=== PATIENT | female | born 1975 | race Caucasian/White ===

== ENCOUNTER 2019-02-21 21:25 | Observation (INO) ==
[2019-02-22] MEDS ORDERED: Ondansetron ODT 4 MG TAB.RAPDIS SL PRN (00:10)
[2019-02-22] MEDS ORDERED: Naloxone 0.4 MG/ML INJ IVP PRN (00:10)
--- NOTE | 2019-02-22 00:25 | Internal Med History&Physical ---
<Krissy Burleson - Last Filed: 02/22/19 04:15> Date of Encounter: 02/22/19 Time of Encounter: 11:45 Internal Medicine - H&P: HPI Chief complaint: headache History of present illness: Ms. Cochran is a 43 year old female past medical history of diabetes mellitus on insulin, migraine, asthma who presented to [facility] complaining of headache ongoing for the past 2 days. He reports this morning she woke up and had a tingling sensation around her face and upon getting up she felt dizzy and fell. She reports her was able to wake her up and she was alert and oriented upon waking up. She denies any nausea or emesis. She does report for the past 4 months she has not been taking her insulin because she stopped going to her PCP appointments. She has also not been on issue her glucose at home nor watching her diet. Additionally, she complains of burning sensation in her feet will which likely is secondary to peripheral neuropathy due to poorly controlled glucose. When asked about any drug use she denied it but when directly asked about her amphetamine use she reports taking it orally once. He denied any fever, chills, nausea, shortness of breath or chest pain or any recent illnesses. And [facility] she was noted to have urine toxicology positive for amphetamine. Her glucose was noted to be 708 elevated serum osmolality of 306. She received total of 20 units of Humulin. She had no anion gap. At presentation her potassium was noted to be 3.8. Repeat glucose was 345 and her repeat potassium is 3.0, she subsequently received 20 mEq of IV potassium at outside facility. Her CT of the head showed no acute modalities. Her chest x- ray showed clear lungs with no acute bony abnormalities. At presentation to [facility] point of care glucose was 197 her potassium was noted to be 3.2. Past Med Surg Social Fam HX - Past Medical History Medical history: asthma, diabetes, migraine Additional medical history: smoker Psychiatric history: no psych history - Past Surgical History Surgical History: cholecystectomy, hysterectomy Additional surgical history: abscess drained - Social History Smoking Status: Current every day smoker Smokeless Tobacco Status: No Alcohol use: none Drug use: none - Family History Mother Hx Family Cardiac Disorders: Yes (Heart Arrythmia) Internal Medicine - H&P: Meds Allergy/AdvReac Type Severity Reaction Status Date / Time [place] Allergy Anaphylaxis Verified 05/02/17 16:43 sumatriptan [From Imitrex] AdvReac Chest Pain Verified 05/02/17 18:30 All Systems PM: A 10-system review of systems was performed and is negative for pertinent findin gs except as documented above in the HPI. - Constitutional Constitutional: other (facial tingling), no chills, no fever(s), no weakness - EENT Eyes: no blurry vision, no change in vision, no pain Nose, mouth and throat: no dysphagia, no nasal congestion, no sinus pain - Cardiovascular Cardiovascular ROS IM: no chest pain, no dyspnea, no dyspnea on exertion - Respiratory Respiratory: no cough, no dyspnea, no dyspnea on exertion, no chest congestion - Gastrointestinal Gastrointestinal: no abdominal pain, no constipation, no diarrhea, no nausea, no vomiting - Genitourinary Genitourinary: no dysuria, no urinary frequency, no urinary incontinence - Musculoskeletal Musculoskeletal ROS IM: tingling (Bilateral feet and face), no arthralgias, no neck pain, no numbness - Integumentary Integumentary IM: no erythema, no pruritus, no rash - Neurological Neurological ROS: headache(s), no focal weakness, no vertigo, no weakness - Endocrine Endocrine IM: no fatigue, no flushing, no polyphagia - Constitutional Vitals: Temp Pulse Resp BP Pulse Ox 97.9 F 87 16 159/85 97 02/21/19 23:23 02/21/19 23:23 02/21/19 23:23 02/21/19 23:23 02/21/19 23:23 Exam: Gen: Vitals noted. No acute distress. Appears comfortable. Eyes: anicteric sclerae, moist conjunctivae; no lid-lag HENT: Atraumatic; oropharynx clear with moist mucous membranes and no mucosal ulcerations; normal hard and soft palate, no dentures Neck: Trachea midline; supple, no thyromegaly or lymphadenopathy Cardiac: tachycardic, no murmur, +S1/S2. No JVD noted. Pulmonary: CTA bilaterally, no wheezes, rales or rhonchi, equal chest expansion Abdomen: soft, nontender, no guarding. No masses or hepatosplenomegaly MSK: ROM intact, no joint swelling noted Extremities: no edema, nontender calf Skin: Normal temperature, turgor; no rash, ulcers or subcutaneous nodules Neuro: moves all extremities, no focal deficits, cranial nerves II through XII intact Psych: Appropriate mood and behavior. A&Ox3 Internal Med - H&P Results - Labs CBC & Chem 7: 02/22/19 00:44 - Assessment and Plan (1) Type 2 diabetes mellitus with hyperosmolarity without nonketotic hyperglycemic-hyperosmolar coma ([facility]) Current Visit: Yes Status: Acute Assessment and plan: History of diabetes and supposed to be on short-acting insulin Reports she is not been taking her insulin for the past 4 month. She is unsure if she has type 1 or type 2 diabetes At presentation to outside facility glucose was noted to be 708 without anion gap. Most recent A1c on file is from 2016 was 14 He received 20 units of short-acting insulin outside facility At presentation her glucose was 197 Would benefit from long acting upon discharge Repeat BMP pending Hemoglobin A1c pending Sliding-scale insulin ordered Diabetic diet scaffold worker consulted (2) Amphetamine abuse Current Visit: No Status: Acute Assessment and plan: Presented to outside ED complaining of tingling and pain in her head. She was tachycardic at outside facility and urine toxicology showed amphetamine. Socia (3) Facial tingling Current Visit: Yes Status: Acute Assessment and plan: Likely secondary to hyperglycemia and/or hypokalemia Head CT was negative for any acute abnormalities Continue to replete electrolytes (4) Hypokalemia Current Visit: Yes Status: Acute Assessment and plan: Potassium outside facility was 3.0 she received 20 mg of IV potassium Presentation to [facility] her potassium was 3.2 Currently receiving 40 oral and 40 IV Repeat labs pending Magnesium and phosphorus pending (5) Migraine Current Visit: No Status: Chronic Assessment and plan: History of chronic migraines reported worsening headache for the past 2 days at outside facility. Worsening migraine likely secondary to uncontrolled diabetes. Had CT of the head which did not show any acute abnormalities Acetaminophen when necessary Qualifiers: Migraine type: unspecified Status migrainosus presence: without status migrainosus Intractability: not intractable Qualified Code(s): G43.909 - Migraine, unspecified, not intractable, without status migrainosus (6) Asthma Current Visit: No Status: Chronic Assessment and plan: History of asthma. Outside facility complained of shortness of breath. Does currently smoke Continue albuterol when necessary Also added spirometry Qualifiers: Asthma severity: unspecified severity Asthma persistence: unspecified Asthma complication type: unspecified Qualified Code(s): J45.909 - Unspecified asthma, uncomplicated (7) DVT prophylaxis Current Visit: No Status: Acute Assessment and plan: Subcutaneous heparin - Time Spent With Patient Total time spent is greater than 50% in coordination of care (as documented) at patient's floor/unit and/or counseling patient: <Garfield Angel - Last Filed: 02/22/19 07:42> Date of Encounter: 02/22/19 Internal Medicine - H&P: HPI History of present illness: Ms. Cochran is a 43 year old female All Systems PM: A 10-system review of systems was performed and is negative for pertinent find ings except as documented above in the HPI. - Constitutional Vitals: Temp Pulse Resp BP Pulse Ox 97.6 F 93 16 160/113 98 02/22/19 05:35 02/22/19 07:31 02/22/19 07:31 02/22/19 07:31 02/22/19 07:31 Internal Med - H&P Results - Labs CBC & Chem 7: 02/22/19 00:44 Labs: BMP 02/22/19 00:44 Sodium 139 Potassium 3.3 L Chloride 108 H Carbon Dioxide 25 BUN 16 Creatinine 0.72 Glucose 260 H Calcium 8.0 L - Time Spent With Patient Total time spent is greater than 50% in coordination of care (as documented) at patient's floor/unit and/or counseling patient: - Attending Attestation I saw and evaluated the patient. I reviewed the residents note, performed my own physical examination and agree with findings and plan as documented in the residents note. Patient seen and examined on 02/22/19. Patient admitted with concerns for HHS, now improved. Patient states that she just did not pick up operator her medication, no specific reason why. Agree with social work consult to identify barriers. Patient also has history of meth use. Blood pressure elevated this morning, IV hydralazine given, repeat blood pressures to ensure it is improving.
[2019-02-22] MEDS ORDERED: D5% in Water 1,000 ML IVC PRN (00:41)
[2019-02-22] MEDS ORDERED: *HR* Dextrose 50 % in Water (Syg) 50 ML SYRINGE IVP PRN (00:41)
[2019-02-22] MEDS ORDERED: Dextrose Gel 15 GM/37.5 ML TUBE PO PRN ×2 (00:41)
[2019-02-22 01:16] LABS: BUN/Creatinine Ratio 22 (6-26); Blood Urea Nitrogen 16 mg/dL (6-20); Carbon Dioxide 25 mEq/L (23-29); Chloride 108 mEq/L (98-107); Glucose 260 mg/dL (70-105); Osmolality,Calculated 298 (280-300); Potassium 3.3 mEq/L (3.5-5.1); Sodium 139 mEq/L (136-145); eGFR For Non-African Americans > 60 (> 60)
[2019-02-22] MEDS: Acetaminophen 325 MG TABLET PO PRN ×4 (01:21→17:27)
[2019-02-22] MEDS: Insulin LISPRO 300 UNITS/3 ML VIAL SQ SCH ×4 (01:21→17:30)
[2019-02-22] MEDS ORDERED: Potassium Chloride 40 MEQ, Lidocaine 1% 2 ML in D5% in Water 500 ML IVPB ONE (03:00)
[2019-02-22] MEDS ORDERED: Insulin LISPRO 300 UNITS/3 ML VIAL SQ SCH ×2 (06:00)
[2019-02-22] MEDS: *HR* Heparin 5,000 UNIT/ML VIAL SQ SCH ×2 (06:04→17:29)
[2019-02-22] MEDS ORDERED: hydrALAZINE 10 MG TABLET PO PRN (06:42)
[2019-02-22 07:33] VITALS: BP 160/113
[2019-02-22 07:44] LABS: Basophils # 0.1 K/mcL (0.0-0.2); Basophils % 0.5 %; Eosinophils # 0.2 K/mcL (0.0-0.6); Eosinophils % 1.7 %; Hematocrit 39.7 % (35.3-44.9); Hemoglobin 13.4 g/dL (11.5-15.4); Immature Granulocytes % 0.2 % (0-4); Lymphocytes # 4.4 K/mcL (0.6-4.6); Lymphocytes % 47.7 %; Mean Corpuscular HGB Conc 33.8 g/dL (31.6-35.5); Mean Corpuscular Hemoglobin 28.9 pg (28.0-33.3); Mean Corpuscular Volume 85.6 fL (83.0-100.0); Mean Platelet Volume 11.2 fL (9.4-12.4); Monocytes # 0.5 K/mcL (0.0-1.3); Monocytes % 5.4 %; Neutrophils # 4.1 K/mcL (1.6-8.9); Platelet Count 314 K/mcL (140-400); Red Blood Count 4.64 M/mcL (3.82-4.97); Red Cell Distribution Width 12.6 % (11.5-14.5); Segmented Neutrophils % 44.5 %
[2019-02-22] MEDS ORDERED: amLODIPine 5 MG TABLET PO SCH (09:00)
[2019-02-22 09:57] LABS: BUN/Creatinine Ratio 27 (6-26); Blood Urea Nitrogen 17 mg/dL (6-20); Calcium 8.1 mg/dL (8.6-10.3); Carbon Dioxide 22 mEq/L (23-29); Chloride 106 mEq/L (98-107); Glucose 312 mg/dL (70-105); Magnesium 1.6 mg/dL (1.6-2.6); Osmolality,Calculated 293 (280-300); Phosphorous 3.2 mg/dL (2.7-4.5); Sodium 135 mEq/L (136-145); eGFR For Non-African Americans > 60 (> 60)
[2019-02-22 10:48] LABS: Estimated Average Glucose 375 mg/dl; Hemoglobin A1C 14.7 %
--- NOTE | 2019-02-22 13:35 | Discharge Summary ---
- NOTES TO OUTPATIENT PROVIDER Notes to Outpatient Provider: Hyperglycemia 2/2 insulin noncompliance Date of Encounter: 02/22/19 Time of Encounter: 13:32 Hospital course: Dear Doctors, I recently had the opportunity to care for this patient during their recent hospital stay at [facility]. Yany Cochran is a 43 F w hx DM2 on insulin, migraines, asthma, who presented at time of admission with headache x2 days, facial tingling, and dizziness. She also reports not taking her insulin for several months and not following up PCP, no idea of her blood sugar. In the ED, glucose was 708 w osmolality 306, no AG. She received total of 20 units of Humulin. Repeat glucose was 345 and her repeat potassium was down to 3, and she subsequently received 20 mEq of IV potassium and transferred to this hospital. Head CT and CXR unremarkable. UA concerning for infection. In the hospital, pt's sugar in the 200s but otherwise labs unremarkable. Symptoms which brought patient to hospital abated with improved glycemic control. Pt rehydrated w IV fluids. Discharged to follow up with PCP. Dx: Severe hyperglycemia, UTI, hypokalemia Pertinent tests/consults: none Follow up: PCP within 1 week Tests pending: none Med changes: - new Keflex 500 bid x5 days - also pt instructed to resume home Lantus 20 qhs and Humalog achs prn sliding scale Mental status: awake, fully oriented Code status: Full Admit and discharge on same day, >8h apart, different providers. It has been my pleasure participating in this patient's care. Please contact me with any questions or concerns regarding their hospital stay. Sincerely, Layo Barboza MD - Time Spent with Patient Time spent: D/C greater than 8 hours after Admission - Discharge Medications Prescriptions: New cephALEXin [Keflex] 500 mg PO BID #10 capsule Continued Amitriptyline HCl 100 mg PO HS PRN PRN Reason: Sleep Insulin LISPRO [HumaLOG] 0 unit SQ TIDWM PRN PRN Reason: elevated blood sugar Insulin Glargine,Hum.rec.anlog [Basaglar Kwikpen U-100] 20 unit SQ HS Fluticasone/Vilanterol [Breo Ellipta 100-25 Mcg INH] 1 each IH DAILY Albuterol Sulfate [Ventolin Hfa] 2 puff IH Q4H PRN PRN Reason: Shortness Of Breath hydrOXYzine HCl [Hydroxyzine HCl] 25 mg PO BID PRN PRN Reason: Anxiety Propranolol LA (24 HR) [Inderal LA] 60 mg PO DAILY Home Medications: Albuterol Sulfate [Ventolin Hfa] 2 puff IH Q4H PRN 02/22/19 [History] Amitriptyline HCl 100 mg PO HS PRN 02/22/19 [History] Fluticasone/Vilanterol [Breo Ellipta 100-25 Mcg INH] 1 each IH DAILY 02/22/19 [History] Insulin Glargine,Hum.rec.anlog [Basaglar Kwikpen U-100] 20 unit SQ HS 02/22/19 [History] Insulin LISPRO [HumaLOG] 0 unit SQ TIDWM PRN 02/22/19 [History] Propranolol LA (24 HR) [Inderal LA] 60 mg PO DAILY 02/22/19 [History] cephALEXin [Keflex] 500 mg PO BID #10 capsule 02/22/19 [Rx] hydrOXYzine HCl [Hydroxyzine HCl] 25 mg PO BID PRN 02/22/19 [History] Allergies/Adverse Reactions: Allergy/AdvReac Type Severity Reaction Status Date / Time [place] Allergy Anaphylaxis Verified 05/02/17 16:43 sumatriptan [From Imitrex] AdvReac Chest Pain Verified 05/02/17 18:30 Date of admission: 02/21/19 23:18 Primary care physician: Tiesha Bender Consults: 02/22/19 00:11 Consult to Drug Abuse Resistance Education Officer [CONS] Routine Reason for SW Consult: Has not been taking her medications - Constitutional Vitals: Temp Pulse Resp BP Pulse Ox 97.6 F 93 16 160/113 98 02/22/19 05:35 02/22/19 07:31 02/22/19 07:31 02/22/19 07:31 02/22/19 07:31 Exam: General: NAD, good eye contact, chronically ill appearing Thoracic: Normal breath sounds b/l, no wheezing or crackles Cardio: Normal S1 and S2, regular rate and rhythm Abdomen: Soft, nontender, nondistended. Extremities: Warm, well perfused. DP pulses 2+ b/l. No edema. Neuro: Awake, fully oriented. Speech fluent - Patient Status Disposition: Home, Self-Care Condition: Fair Functional capacity at discharge: independent ambulation Overall status at discharge: patient is progressing back to baseline - Discharge Instructions Follow Up With: Tiesha Bender CNP [Primary Care Provider] - (1 week) - Diet and Activity Activity: resume usual activities as tolerated Diet: diabetic diet
== END 2019-02-22 18:22 | disposition home or self-care (01) ==
LOC: 2NNU → 2NENU 02-22 01:58
PROVIDERS: ADMIT Pediatrics; ATTEND Pediatrics

== ENCOUNTER 2020-01-11 01:43 | Inpatient (IN) ==
[2020-01-11] MEDS ORDERED: 0.9 % Sodium Chloride 1,000 ML IVC ONE (02:04)
[2020-01-11 02:23] LABS: Basophils # 0.1 K/mcL (0.0-0.2); Basophils % 0.5 %; Eosinophils % 0.1 %; Hemoglobin 16.7 g/dL (11.5-15.4); Immature Granulocytes % 1.6 % (0-4); Lymphocytes # 1.7 K/mcL (0.6-4.6); Mean Corpuscular HGB Conc 32.7 g/dL (31.6-35.5); Mean Corpuscular Volume 88.5 fL (83.0-100.0); Mean Platelet Volume 13.7 fL (9.4-12.4); Monocytes # 1.1 K/mcL (0.0-1.3); Monocytes % 3.8 %; Nucleated Red Blood Cells 0.1 /100 WBC (0); Platelet Count 353 K/mcL (140-400); Red Blood Count 5.76 M/mcL (3.82-4.97); Red Cell Distribution Width 13.2 % (11.5-14.5); White Blood Count 28.4 K/mcL (4.3-11.1)
[2020-01-11 02:26] LABS: Bilirubin,Urine Negative (Negative); Blood,Urine Small (Negative); Clarity,Urine Cloudy (Clear); Color,Urine Yellow (Yellow); Glucose,Urine (UA) >=1000 mg/dL (Normal); Ketones,Urine 15 mg/dL (Negative); Leukocyte Esterase,Urine Negative (Negative); Nitrite,Urine Negative (Negative); Protein,Urine 30 mg/dL (Neg-Trace); Specific Gravity,Urine > 1.030 (1.010-1.025); Urobilinogen,Urine Normal (Normal)
[2020-01-11 02:28] LABS: Bacteria,Urine Many per hpf (None-Few); Hyaline Casts,Urine None Seen per lpf (None-Few); RBC,Urine 0-3 per hpf (0-3); Squamous Epithelial Cell,Urine Moderate per lpf (None-Few); WBC,Urine 30-50 per hpf (0-3)
[2020-01-11 02:49] LABS: ABG Base Excess -4 mEq/L (-2 to 3); ABG HCO3 22 mEq/L (21-27); ABG Oxygen Saturation 89 % (95-98); ABG PCO2 42 mmHg (35-45); ABG PH 7.33 pH Units (7.32-7.45); ABG PO2 60 mmHg (85-104); ABG TCO2 23 mEq/L (20-26)
[2020-01-11 03:05] LABS: Albumin 3.7 g/dL (3.5-5.7); Albumin/Globulin Ratio 0.8 (1.1-2.2); Bilirubin,Total 0.4 mg/dL (0.3-1.0); Calcium 10.2 mg/dL (8.6-10.3); Globulin 4.7 g/dL (2.4-3.5); Potassium 4.5 mEq/L (3.5-5.1); Total Protein 8.4 g/dL (6.4-8.9); Troponin I 0.04 ng/mL (< 0.04)
[2020-01-11] MEDS ORDERED: Insulin Human Regular 10 UNIT in 0.9 % Sodium Chloride 10 ML IV ONE (03:26)
[2020-01-11] MEDS ORDERED: *HR* Dextrose 50 % in Water (Syg) 50 ML SYRINGE IVP PRN ×2 (03:27→05:56)
[2020-01-11] MEDS ORDERED: cefTRIAXone 1,000 MG in 0.9 % Sodium Chloride Mini Bag 100 ML IVPB ONE (03:28)
[2020-01-11] MEDS ORDERED: Insulin Human Regular 100 UNIT in 0.9 % Sodium Chloride 100 ML IVC SCH ×2 (03:30→06:15)
[2020-01-11] MEDS: 0.9 % Sodium Chloride 1,000 ML IVC SCH ×2 (03:32→04:53)
[2020-01-11] MEDS ORDERED: Ondansetron 4 MG/2 ML VIAL ONE (04:29)
[2020-01-11] MEDS ORDERED: Ondansetron 4 MG/2 ML VIAL IVP ONE (04:30)
[2020-01-11] MEDS ORDERED: Morphine Sulfate 2 MG/ML SYRINGE IVP ONE (04:31)
[2020-01-11] MEDS ORDERED: Ondansetron 4 MG/2 ML VIAL IVP PRN (04:33)
[2020-01-11] MEDS ORDERED: Naloxone 0.4 MG/ML INJ IVP PRN (04:33)
[2020-01-11] MEDS ORDERED: Ipratropium/Albuterol Neb 3 ML IH PRN (04:37)
[2020-01-11] MEDS ORDERED: *HR* HYDROmorphone (PF) 1 MG/ML SYRINGE IVP PRN (04:40)
[2020-01-11] MEDS ORDERED: 0.9 % Sodium Chloride 1,000 ML IVC SCH (04:45)
[2020-01-11 05:07] LABS: INR 1.1; Prothrombin Time 12.4 Seconds (9.4-12.1)
[2020-01-11 05:52] LABS: Albumin 3.6 g/dL (3.5-5.7); Albumin/Globulin Ratio 0.8 (1.1-2.2); Bilirubin,Total 0.3 mg/dL (0.3-1.0); Calcium 9.8 mg/dL (8.6-10.3); Globulin 4.4 g/dL (2.4-3.5); Magnesium 3.3 mg/dL (1.6-2.6); Phosphorous 2.4 mg/dL (2.7-4.5); Potassium 3.8 mEq/L (3.5-5.1)
[2020-01-11] MEDS ORDERED: 0.9 % Sodium Chloride w KCl 20 MEQ/1,000 ML MLS IVC SCH (06:00)
[2020-01-11] MEDS: *HR* Heparin 5,000 UNIT/ML VIAL SQ SCH ×3 (06:43→21:05)
[2020-01-11] MEDS: 0.45 % Sodium Chloride w/KCl 20 MEQ/1,000 ML MLS IVC SCH ×7 (08:18→23:45)
[2020-01-11 08:27] LABS: Calcium 9.6 mg/dL (8.6-10.3); Potassium 3.2 mEq/L (3.5-5.1)
[2020-01-11] MEDS ORDERED: cefTRIAXone 1,000 MG in Water for inj. (sterile) 10 ML IVP SCH (09:00)
[2020-01-11] MEDS ORDERED: cefTRIAXone 1,000 MG in 0.9 % Sodium Chloride Mini Bag 100 ML IVPB SCH (09:00)
[2020-01-11 10:11] LABS: VBG HCO3 26 mEq/L (21-27); VBG PCO2 41 mmHg (41-51); VBG PH 7.41 pH Units (7.32-7.42); VBG PO2 131 mmHg (25-50)
[2020-01-11 10:14] LABS: Hematocrit 47.1 % (35.3-44.9); Hemoglobin 15.7 g/dL (11.5-15.4); Mean Corpuscular HGB Conc 33.3 g/dL (31.6-35.5); Mean Corpuscular Hemoglobin 29.3 pg (28.0-33.3); Mean Platelet Volume 12.8 fL (9.4-12.4); Nucleated Red Blood Cells 0.1 /100 WBC (0); Platelet Count 320 K/mcL (140-400); Red Blood Count 5.35 M/mcL (3.82-4.97); Red Cell Distribution Width 13.2 % (11.5-14.5); White Blood Count 24.1 K/mcL (4.3-11.1)
[2020-01-11 10:39] LABS: Lymphocytes # 2.2 K/mcL (0.6-4.6); Monocytes # 0.2 K/mcL (0.0-1.3); Neutrophils # 21.7 K/mcL (1.6-8.9); Platelet Estimate Normal (Normal)
[2020-01-11 10:56] LABS: Amphetamine Screen,Urine Negative ng/mL (Cutoff=1000); Barbiturate Screen,Urine Negative ng/mL (Cutoff=200); Benzodiazepines Screen,Urine Negative ng/mL (Cutoff=200); Cannabinoid Screen,Urine Negative ng/mL (Cutoff = 50); Cocaine Screen,Urine Negative ng/mL (Cutoff= 300); Opiate Screen,Urine Positive ng/mL (Cutoff=300); Phencyclidine Screen,Urine Negative ng/mL (Cutoff=25)
[2020-01-11 10:59] LABS: Potassium 4.3 mEq/L (3.5-5.1)
[2020-01-11] MEDS ORDERED: Azithromycin 500 MG in 0.9 % Sodium Chloride 250 ML IVPB SCH (11:00)
[2020-01-11] MEDS: Ipratropium/Albuterol Neb 3 ML IH SCH ×3 (14:45→21:53)
[2020-01-11 14:55] LABS: BUN/Creatinine Ratio 36 (6-26); Blood Urea Nitrogen 41 mg/dL (6-20); Calcium 8.9 mg/dL (8.6-10.3); Carbon Dioxide 23 mEq/L (23-29); Chloride 123 mEq/L (98-107); Glucose 324 mg/dL (70-105); Osmolality,Calculated 337 (280-300); Potassium 5.1 mEq/L (3.5-5.1); Sodium 152 mEq/L (136-145); eGFR For African Americans > 60 (> 60); eGFR For Non-African Americans 51 (> 60)
[2020-01-11] MEDS: D5% in 0.45% NACL w KCl 20 MEQ/1,000 ML MLS IVC PRN ×2 (15:23→19:24)
[2020-01-11] MEDS: Insulin Human Regular 100 UNIT in 0.9 % Sodium Chloride 100 ML IVC SCH ×2 (16:08→19:25)
[2020-01-11] MEDS: Piperacillin/Tazobactam 3.375 GM in 0.9 % Sodium Chloride Mini Bag 100 ML IVPB SCH ×2 (16:08→23:47)
[2020-01-11 16:24] LABS: Amphetamine Screen,Urine Negative ng/mL (Cutoff=1000); Barbiturate Screen,Urine Negative ng/mL (Cutoff=200); Benzodiazepines Screen,Urine Negative ng/mL (Cutoff=200); Cannabinoid Screen,Urine Negative ng/mL (Cutoff = 50); Cocaine Screen,Urine Negative ng/mL (Cutoff= 300); Opiate Screen,Urine Positive ng/mL (Cutoff=300); Phencyclidine Screen,Urine Negative ng/mL (Cutoff=25)
[2020-01-11 19:49] LABS: BUN/Creatinine Ratio 33 (6-26); Blood Urea Nitrogen 33 mg/dL (6-20); Calcium 8.2 mg/dL (8.6-10.3); Carbon Dioxide 22 mEq/L (23-29); Chloride 122 mEq/L (98-107); Glucose 232 mg/dL (70-105); Osmolality,Calculated 329 (280-300); Sodium 152 mEq/L (136-145); eGFR For African Americans > 60 (> 60); eGFR For Non-African Americans > 60 (> 60)
[2020-01-11 19:53] LABS: Estimated Average Glucose 369 mg/dl
[2020-01-11] MEDS: Acetaminophen 325 MG TABLET PO PRN (21:05)
[2020-01-11 22:52] LABS: BUN/Creatinine Ratio 30 (6-26); Blood Urea Nitrogen 30 mg/dL (6-20); Carbon Dioxide 21 mEq/L (23-29); Chloride 125 mEq/L (98-107); Glucose 119 mg/dL (70-105); Osmolality,Calculated 317 (280-300); Potassium 4.7 mEq/L (3.5-5.1); Sodium 150 mEq/L (136-145); eGFR For African Americans > 60 (> 60); eGFR For Non-African Americans 59 (> 60)
[2020-01-12] MEDS: D5% in 0.45% NACL w KCl 20 MEQ/1,000 ML MLS IVC PRN (00:05)
[2020-01-12] MEDS ORDERED: Insulin DETEMIR 100 UNIT/ML X5UNITS SQ SCH (02:30)
[2020-01-12 03:04] LABS: Magnesium 2.3 mg/dL (1.6-2.6); Phosphorous 1.4 mg/dL (2.7-4.5)
[2020-01-12 03:25] LABS: BUN/Creatinine Ratio 26 (6-26); Blood Urea Nitrogen 28 mg/dL (6-20); Carbon Dioxide 16 mEq/L (23-29); Chloride 121 mEq/L (98-107); Glucose 131 mg/dL (70-105); Osmolality,Calculated 315 (280-300); Potassium 4.5 mEq/L (3.5-5.1); Sodium 149 mEq/L (136-145); eGFR For African Americans > 60 (> 60); eGFR For Non-African Americans 55 (> 60)
[2020-01-12] MEDS: Ipratropium/Albuterol Neb 3 ML IH SCH ×4 (03:26→20:34)
[2020-01-12 04:06] LABS: Basophils # 0.1 K/mcL (0.0-0.2); Basophils % 0.5 %; Eosinophils # 0.1 K/mcL (0.0-0.6); Eosinophils % 0.3 %; Hematocrit 46.3 % (35.3-44.9); Hemoglobin 14.6 g/dL (11.5-15.4); Immature Granulocytes % 1.8 % (0-4); Lymphocytes # 4.4 K/mcL (0.6-4.6); Lymphocytes % 15.8 %; Mean Corpuscular HGB Conc 31.5 g/dL (31.6-35.5); Mean Corpuscular Hemoglobin 29.1 pg (28.0-33.3); Mean Corpuscular Volume 92.2 fL (83.0-100.0); Mean Platelet Volume 12.5 fL (9.4-12.4); Monocytes # 2.3 K/mcL (0.0-1.3); Monocytes % 8.2 %; Neutrophils # 20.4 K/mcL (1.6-8.9); Nucleated Red Blood Cells 0.2 /100 WBC (0); Platelet Count 246 K/mcL (140-400); Red Blood Count 5.02 M/mcL (3.82-4.97); Segmented Neutrophils % 73.4 %; White Blood Count 27.8 K/mcL (4.3-11.1)
[2020-01-12] MEDS: *HR* Heparin 5,000 UNIT/ML VIAL SQ SCH ×3 (06:19→22:02)
[2020-01-12] MEDS ORDERED: Insulin LISPRO 300 UNITS/3 ML VIAL SQ SCH ×2 (07:30→21:00)
[2020-01-12] MEDS: Piperacillin/Tazobactam 3.375 GM in 0.9 % Sodium Chloride Mini Bag 100 ML IVPB SCH ×2 (08:06→16:01)
[2020-01-12] MEDS ORDERED: Potassium Phosphate 44 MEQ in 0.9 % Sodium Chloride 250 ML IVPB ONE (08:56)
[2020-01-12] MEDS ORDERED: Albuterol 2.5 MG/3 ML NEBULIZER IH PRN (09:22)
[2020-01-12] MEDS ORDERED: Ringers Solution, Lactated 1,000 ML IVC SCH (10:15)
[2020-01-12] MEDS: predniSONE 20 MG TABLET PO SCH (10:37)
[2020-01-12] MEDS: Insulin Human Regular 100 UNIT in 0.9 % Sodium Chloride 100 ML IVC SCH ×2 (10:41→23:28)
[2020-01-12] MEDS ORDERED: Furosemide 40 MG/4 ML VIAL IVP ONE (14:54)
[2020-01-12 15:11] LABS: BUN/Creatinine Ratio 21 (6-26); Blood Urea Nitrogen 19 mg/dL (6-20); Calcium 7.8 mg/dL (8.6-10.3); Carbon Dioxide 23 mEq/L (23-29); Chloride 114 mEq/L (98-107); Glucose 200 mg/dL (70-105); Osmolality,Calculated 302 (280-300); Potassium 3.7 mEq/L (3.5-5.1); Sodium 142 mEq/L (136-145); eGFR For African Americans > 60 (> 60); eGFR For Non-African Americans > 60 (> 60)
[2020-01-12] MEDS: Acetaminophen 325 MG TABLET PO PRN (22:42)
[2020-01-13] MEDS: Piperacillin/Tazobactam 3.375 GM in 0.9 % Sodium Chloride Mini Bag 100 ML IVPB SCH ×2 (00:03→09:02)
[2020-01-13] MEDS: Ipratropium/Albuterol Neb 3 ML IH SCH ×5 (00:14→22:13)
[2020-01-13 03:58] LABS: Basophils % 0.3 %; Eosinophils # 0.1 K/mcL (0.0-0.6); Eosinophils % 0.4 %; Hematocrit 40.1 % (35.3-44.9); Hemoglobin 13.2 g/dL (11.5-15.4); Immature Granulocytes % 1.3 % (0-4); Lymphocytes # 3.2 K/mcL (0.6-4.6); Lymphocytes % 20.1 %; Mean Corpuscular HGB Conc 32.9 g/dL (31.6-35.5); Mean Corpuscular Hemoglobin 29.7 pg (28.0-33.3); Mean Corpuscular Volume 90.1 fL (83.0-100.0); Mean Platelet Volume 12.7 fL (9.4-12.4); Monocytes # 0.5 K/mcL (0.0-1.3); Monocytes % 2.9 %; Neutrophils # 11.8 K/mcL (1.6-8.9); Nucleated Red Blood Cells 0.3 /100 WBC (0); Platelet Count 260 K/mcL (140-400); Red Blood Count 4.45 M/mcL (3.82-4.97); Red Cell Distribution Width 13.4 % (11.5-14.5); White Blood Count 15.8 K/mcL (4.3-11.1)
[2020-01-13 04:06] LABS: BUN/Creatinine Ratio 29 (6-26); Blood Urea Nitrogen 27 mg/dL (6-20); Calcium 8.1 mg/dL (8.6-10.3); Carbon Dioxide 24 mEq/L (23-29); Chloride 110 mEq/L (98-107); Glucose 93 mg/dL (70-105); Magnesium 1.8 mg/dL (1.6-2.6); Osmolality,Calculated 299 (280-300); Phosphorous 2.3 mg/dL (2.7-4.5); Potassium 3.3 mEq/L (3.5-5.1); Sodium 142 mEq/L (136-145); eGFR For African Americans > 60 (> 60); eGFR For Non-African Americans > 60 (> 60)
[2020-01-13] MEDS: Insulin Human Regular 100 UNIT in 0.9 % Sodium Chloride 100 ML IVC SCH (05:20)
[2020-01-13] MEDS: *HR* Heparin 5,000 UNIT/ML VIAL SQ SCH ×3 (05:25→21:41)
[2020-01-13] MEDS: Acetaminophen 325 MG TABLET PO PRN ×2 (07:01→16:50)
[2020-01-13] MEDS: predniSONE 20 MG TABLET PO SCH (09:01)
[2020-01-13] MEDS ORDERED: D5% in Water 1,000 ML IVC PRN (10:09)
[2020-01-13] MEDS ORDERED: Dextrose Gel 15 GM/37.5 ML TUBE PO PRN ×2 (10:09)
[2020-01-13] MEDS: Insulin DETEMIR 100 UNIT/ML X5UNITS SQ SCH ×2 (11:33→21:40)
[2020-01-13] MEDS: Insulin LISPRO 300 UNITS/3 ML VIAL SQ SCH ×2 (12:11→16:52)
[2020-01-13] MEDS ORDERED: Insulin LISPRO 300 UNITS/3 ML VIAL SQ ONE (18:09)
[2020-01-13] MEDS ORDERED: *HR* OxyCODONE/APAP 7.5/325 TABLET PO STA (19:37)
[2020-01-13] MEDS ORDERED: Insulin LISPRO 300 UNITS/3 ML VIAL SQ SCH (21:00)
[2020-01-14] MEDS ORDERED: Pantoprazole 40 MG VIAL IVP ONE (02:25)
[2020-01-14 02:36] LABS: Basophils % 0.2 %; Eosinophils % 0.2 %; Immature Granulocytes % 1.5 % (0-4); Lymphocytes # 2.8 K/mcL (0.6-4.6); Lymphocytes % 15.8 %; Mean Corpuscular HGB Conc 31.8 g/dL (31.6-35.5); Mean Corpuscular Hemoglobin 28.4 pg (28.0-33.3); Mean Corpuscular Volume 89.2 fL (83.0-100.0); Mean Platelet Volume 12.9 fL (9.4-12.4); Monocytes # 0.7 K/mcL (0.0-1.3); Monocytes % 3.8 %; Neutrophils # 13.9 K/mcL (1.6-8.9); Nucleated Red Blood Cells 0.3 /100 WBC (0); Platelet Count 354 K/mcL (140-400); Red Blood Count 4.93 M/mcL (3.82-4.97); Red Cell Distribution Width 13.5 % (11.5-14.5); Segmented Neutrophils % 78.5 %; White Blood Count 17.6 K/mcL (4.3-11.1)
[2020-01-14 02:54] LABS: BUN/Creatinine Ratio 34 (6-26); Blood Urea Nitrogen 29 mg/dL (6-20); Calcium 9.7 mg/dL (8.6-10.3); Carbon Dioxide 24 mEq/L (23-29); Chloride 105 mEq/L (98-107); Glucose 195 mg/dL (70-105); Osmolality,Calculated 299 (280-300); Phosphorous 2.2 mg/dL (2.7-4.5); Potassium 3.9 mEq/L (3.5-5.1); Sodium 139 mEq/L (136-145); eGFR For African Americans > 60 (> 60); eGFR For Non-African Americans > 60 (> 60)
[2020-01-14] MEDS: *HR* Heparin 5,000 UNIT/ML VIAL SQ SCH (03:27)
[2020-01-14] MEDS: Ipratropium/Albuterol Neb 3 ML IH SCH ×2 (04:18→10:33)
[2020-01-14] MEDS: Insulin LISPRO 300 UNITS/3 ML VIAL SQ SCH (07:44)
[2020-01-14] MEDS: Insulin DETEMIR 100 UNIT/ML X5UNITS SQ SCH (07:55)
[2020-01-14] MEDS: Acetaminophen 325 MG TABLET PO PRN (08:04)
[2020-01-14] MEDS ORDERED: predniSONE 20 MG TABLET PO SCH (09:00)
[2020-01-14 11:24] VITALS: BP 106/70
[2020-01-14] MEDS ORDERED: Aminoglycoside Consult 1 EACH MC ONE (12:49)
== END 2020-01-14 12:50 | disposition home or self-care (01) | DRG 720 ==
LOC: EMEROOARM 01:43 → 2NNU 01:43 → SUATTDRO 03:43 → 2NNU 04:16 → 2ANU 01-13 20:39
PROVIDERS: ADMIT Internal Medicine; ATTEND Student in an Organized Health Care Education/Training Program

== ENCOUNTER 2021-06-10 08:22 | Inpatient (IN) ==
[2021-06-10] MEDS ORDERED: *HR* Heparin 5,000 UNIT/ML VIAL IVP ONE (08:32)
[2021-06-10] MEDS ORDERED: 0.9 % Sodium Chloride 1,000 ML IVC ONE (08:34)
[2021-06-10] MEDS ORDERED: 0.9 % Sodium Chloride 1,000 ML ONE (08:35)
[2021-06-10] MEDS ORDERED: Aspirin 81 MG TAB.CHEW ONE (08:35)
[2021-06-10] MEDS ORDERED: *HR* Heparin 5,000 UNIT/ML VIAL ONE (08:35)
[2021-06-10] MEDS ORDERED: *HR* Midazolam HCl 2 MG/2 ML VIAL ONE (08:44)
[2021-06-10 08:45] LABS: Basophils # 0.1 K/mcL (0.0-0.2); Basophils % 0.4 %; Eosinophils # 0.2 K/mcL (0.0-0.6); Eosinophils % 1.9 %; Hematocrit 41.6 % (35.3-44.9); Hemoglobin 13.8 g/dL (11.5-15.4); Immature Granulocytes % 0.2 % (0-4); Lymphocytes % 41.4 %; Mean Corpuscular HGB Conc 33.2 g/dL (31.6-35.5); Mean Corpuscular Volume 84.4 fL (83.0-100.0); Mean Platelet Volume 11.7 fL (9.4-12.4); Monocytes # 0.8 K/mcL (0.0-1.3); Monocytes % 6.4 %; Neutrophils # 6.3 K/mcL (1.6-8.9); Platelet Count 488 K/mcL (140-400); Red Blood Count 4.93 M/mcL (3.82-4.97); Red Cell Distribution Width 12.5 % (11.5-14.5); Segmented Neutrophils % 49.7 %; White Blood Count 12.7 K/mcL (4.3-11.1)
[2021-06-10] MEDS ORDERED: *HR* FentaNYL (PF) 100 MCG/2 ML VIAL ONE (08:45)
[2021-06-10] MEDS ORDERED: ISOVUE-370 200 ML INFUS..BTL ONE ×2 (08:45→09:24)
[2021-06-10] MEDS: *HR* Ticagrelor 90 MG TABLET ONE ×2 (08:45→09:16)
[2021-06-10] MEDS ORDERED: *HR* Heparin 10,000 UNIT/10 ML VIAL ONE (08:45)
[2021-06-10] MEDS ORDERED: Heparin 1,000 UNITS/500 mL 500 ML ONE (08:45)
[2021-06-10] MEDS ORDERED: Nitroglycerin 1,000 MCG/5 ML VIAL IV ONE (08:45)
[2021-06-10] MEDS ORDERED: 0.9 % Sodium Chloride 2,000 ML ONE (08:45)
[2021-06-10 08:50] LABS: Lymphocytes # 5.3 K/mcL (0.6-4.6)
[2021-06-10] MEDS ORDERED: Morphine Sulfate 2 MG/ML SYRINGE ONE (09:04)
[2021-06-10] MEDS ORDERED: *HR* Ticagrelor 90 MG TABLET ONE (09:05)
[2021-06-10] MEDS ORDERED: Tirofiban 12.5 MG/250ML 12.5 MG/250 ML BAG ONE (09:09)
[2021-06-10 09:10] LABS: BUN/Creatinine Ratio 20 (6-26); Blood Urea Nitrogen 22 mg/dL (6-20); Carbon Dioxide 26 mEq/L (23-29); Chloride 101 mEq/L (98-107); Glucose 462 mg/dL (70-105); Magnesium 1.7 mg/dL (1.6-2.6); Osmolality,Calculated 304 (280-300); Sodium 135 mEq/L (136-145); eGFR For African Americans > 60 (> 60); eGFR For Non-African Americans 53 (> 60)
[2021-06-10] MEDS ORDERED: *HR* Ticagrelor 90 MG TABLET PO ONE (09:11)
[2021-06-10 09:13] LABS: Prothrombin Time 11.4 Seconds (9.4-12.1)
[2021-06-10 09:15] LABS: Activated Partial Thrombo Time 31.9 Seconds (26.0-36.0)
[2021-06-10] MEDS ORDERED: Perflutren Lipid Microsphere 1.3 ML in 0.9 % Sodium Chloride 8.7 ML IVP PRN (09:40)
[2021-06-10 09:42] LABS: Troponin I < 0.03 ng/mL (< 0.04)
[2021-06-10] MEDS ORDERED: Tirofiban 12.5 MG/250ML 12.5 MG/250 ML BAG IVC SCH (09:45)
[2021-06-10] MEDS ORDERED: *HR* FentaNYL (PF) 100 MCG/2 ML VIAL IVP ONE (11:12)
[2021-06-10] MEDS ORDERED: *HR* Midazolam HCl 2 MG/2 ML VIAL IVP ONE (11:12)
[2021-06-10] MEDS ORDERED: Insulin DETEMIR 100 UNIT/ML X5UNITS SUBQ SCH ×2 (11:15→21:00)
[2021-06-10] MEDS: Acetaminophen 325 MG TABLET PO PRN (11:39)
[2021-06-10] MEDS: Insulin LISPRO 300 UNITS/3 ML VIAL SUBQ SCH ×2 (11:51→17:22)
[2021-06-10] MEDS: *HR* HYDROmorphone (PF) 1 MG/ML SYRINGE IVP PRN (14:12)
[2021-06-10] MEDS: carvediloL 6.25 MG TABLET PO SCH (17:20)
[2021-06-10] MEDS ORDERED: *HR* Dextrose 50 % in Water (Vial) 50 ML VIAL IVP PRN (19:05)
[2021-06-10] MEDS ORDERED: D5% in Water 1,000 ML IVC PRN (19:05)
[2021-06-10] MEDS ORDERED: Dextrose Gel 15 GM/37.5 ML TUBE PO PRN ×2 (19:05)
[2021-06-10] MEDS: Gabapentin 300 MG CAPSULE PO SCH (20:02)
[2021-06-10] MEDS: *HR* Ticagrelor 90 MG TABLET PO SCH (20:02)
[2021-06-10] MEDS ORDERED: Insulin LISPRO 300 UNITS/3 ML VIAL SUBQ SCH (21:00)
[2021-06-11] MEDS: *HR* HYDROmorphone (PF) 1 MG/ML SYRINGE IVP PRN ×2 (03:04→21:50)
[2021-06-11 06:04] LABS: Basophils # 0.1 K/mcL (0.0-0.2); Basophils % 0.4 %; Eosinophils # 0.3 K/mcL (0.0-0.6); Eosinophils % 1.8 %; Hematocrit 37.8 % (35.3-44.9); Immature Granulocytes % 0.4 % (0-4); Lymphocytes # 6.4 K/mcL (0.6-4.6); Lymphocytes % 46.1 %; Mean Corpuscular HGB Conc 31.7 g/dL (31.6-35.5); Mean Corpuscular Hemoglobin 27.4 pg (28.0-33.3); Mean Corpuscular Volume 86.3 fL (83.0-100.0); Mean Platelet Volume 11.8 fL (9.4-12.4); Monocytes # 0.8 K/mcL (0.0-1.3); Neutrophils # 6.3 K/mcL (1.6-8.9); Platelet Count 427 K/mcL (140-400); Red Blood Count 4.38 M/mcL (3.82-4.97); Red Cell Distribution Width 12.8 % (11.5-14.5); Segmented Neutrophils % 45.3 %
[2021-06-11 06:27] LABS: BUN/Creatinine Ratio 34 (6-26); Blood Urea Nitrogen 32 mg/dL (6-20); Calcium 8.4 mg/dL (8.6-10.3); Carbon Dioxide 21 mEq/L (23-29); Chloride 108 mEq/L (98-107); Glucose 193 mg/dL (70-105); Osmolality,Calculated 296 (280-300); Potassium 3.9 mEq/L (3.5-5.1); Sodium 137 mEq/L (136-145); eGFR For African Americans > 60 (> 60); eGFR For Non-African Americans > 60 (> 60)
[2021-06-11] MEDS: Insulin LISPRO 300 UNITS/3 ML VIAL SUBQ SCH ×4 (07:55→20:54)
[2021-06-11] MEDS: Acetaminophen 325 MG TABLET PO PRN ×2 (07:56→20:37)
[2021-06-11] MEDS: carvediloL 6.25 MG TABLET PO SCH ×2 (07:57→17:03)
[2021-06-11] MEDS: *HR* Ticagrelor 90 MG TABLET PO SCH ×2 (07:58→20:37)
[2021-06-11] MEDS: Gabapentin 300 MG CAPSULE PO SCH ×2 (07:58→20:37)
[2021-06-11] MEDS ORDERED: hydroCHLOROthiazide 25 MG TABLET PO SCH (09:00)
[2021-06-11] MEDS ORDERED: Aspirin 81 MG TAB.CHEW PO SCH (09:00)
[2021-06-11] MEDS ORDERED: Insulin DETEMIR 100 UNIT/ML X5UNITS SUBQ SCH (09:00)
[2021-06-11] MEDS ORDERED: Ondansetron 4 MG/2 ML VIAL IVP PRN (10:54)
[2021-06-11] MEDS ORDERED: Nicotine 21 MG PATCH.TD24 TD SCH (11:00)
[2021-06-11] MEDS ORDERED: Perflutren Lipid Microsphere 1.3 ML in 0.9 % Sodium Chloride 8.7 ML IVP PRN (13:33)
[2021-06-11] MEDS ORDERED: Dextrose Gel 15 GM/37.5 ML TUBE PO PRN ×2 (13:33)
[2021-06-11] MEDS ORDERED: *HR* Dextrose 50 % in Water (Vial) 50 ML VIAL IVP PRN (13:33)
[2021-06-11] MEDS ORDERED: D5% in Water 1,000 ML IVC PRN (13:33)
[2021-06-11] MEDS: *HR* Heparin 5,000 UNIT/ML VIAL SQ SCH (17:03)
[2021-06-11] MEDS ORDERED: *HR* Heparin 5,000 UNIT/ML VIAL SQ SCH (18:00)
[2021-06-11] MEDS: Insulin DETEMIR 100 UNIT/ML X5UNITS SUBQ SCH (20:56)
[2021-06-12] MEDS: *HR* Heparin 5,000 UNIT/ML VIAL SQ SCH ×2 (05:03→17:09)
[2021-06-12] MEDS: Ondansetron 4 MG/2 ML VIAL IVP PRN ×2 (05:03→18:48)
[2021-06-12] MEDS: Insulin LISPRO 300 UNITS/3 ML VIAL SUBQ SCH ×4 (08:09→21:02)
[2021-06-12] MEDS: Insulin DETEMIR 100 UNIT/ML X5UNITS SUBQ SCH ×2 (08:09→21:01)
[2021-06-12] MEDS: hydroCHLOROthiazide 25 MG TABLET PO SCH (08:10)
[2021-06-12] MEDS: Aspirin 81 MG TAB.CHEW PO SCH (08:10)
[2021-06-12] MEDS: Nicotine 21 MG PATCH.TD24 TD SCH (08:10)
[2021-06-12] MEDS: Gabapentin 300 MG CAPSULE PO SCH ×2 (08:10→21:01)
[2021-06-12] MEDS: *HR* Ticagrelor 90 MG TABLET PO SCH ×2 (08:11→21:02)
[2021-06-12] MEDS: carvediloL 6.25 MG TABLET PO SCH ×2 (08:11→17:10)
[2021-06-12] MEDS: Nitroglycerin 0.4 MG TAB.SUBL SL PRN ×2 (11:19→20:35)
[2021-06-12] MEDS: Isosorbide MONOnitrate (24 HR) 30 MG TAB.ER.24H PO SCH (14:45)
[2021-06-12] MEDS: Acetaminophen 325 MG TABLET PO PRN (18:48)
[2021-06-12] MEDS ORDERED: Morphine Sulfate 2 MG/ML SYRINGE IVP ONE (20:44)
[2021-06-12] MEDS: *HR* HYDROmorphone (PF) 1 MG/ML SYRINGE IVP PRN (21:58)
[2021-06-12] MEDS ORDERED: *HR* Promethazine 25 MG/ML VIAL IM ONE (22:20)
[2021-06-12] MEDS ORDERED: GI Cocktail 40 ML EACH PO ONE (22:21)
[2021-06-13] MEDS: *HR* Heparin 5,000 UNIT/ML VIAL SQ SCH (06:06)
[2021-06-13 07:26] VITALS: TEMP 98.3; O2SAT 97
[2021-06-13] MEDS: hydroCHLOROthiazide 25 MG TABLET PO SCH (08:44)
[2021-06-13] MEDS: Nicotine 21 MG PATCH.TD24 TD SCH (08:45)
[2021-06-13] MEDS: *HR* Ticagrelor 90 MG TABLET PO SCH (08:45)
[2021-06-13] MEDS: carvediloL 6.25 MG TABLET PO SCH (08:45)
[2021-06-13] MEDS: Gabapentin 300 MG CAPSULE PO SCH (08:45)
[2021-06-13] MEDS: Aspirin 81 MG TAB.CHEW PO SCH (08:45)
[2021-06-13] MEDS: Isosorbide MONOnitrate (24 HR) 30 MG TAB.ER.24H PO SCH (08:45)
[2021-06-13] MEDS: Insulin LISPRO 300 UNITS/3 ML VIAL SUBQ SCH ×2 (08:47→12:07)
[2021-06-13] MEDS: Insulin DETEMIR 100 UNIT/ML X5UNITS SUBQ SCH (09:58)
[2021-06-13] MEDS: Acetaminophen 325 MG TABLET PO PRN (11:37)
[2021-06-13 11:51] VITALS: BP 126/87; PULSE 95
== END 2021-06-13 15:50 | disposition home or self-care (01) | DRG 174 ==
LOC: EMEROOARM 08:22 → ICNU 08:59 → 2NNU 06-11 16:35
PROVIDERS: ADMIT Internal Medicine Cardiovascular Disease; ATTEND Internal Medicine Cardiovascular Disease

== ENCOUNTER 2021-08-22 06:30 | Inpatient (IN) ==
[2021-08-22] MEDS ORDERED: Norepinephrine 4 MG in 0.9 % Sodium Chloride 250 ML IVC PRN (07:45)
[2021-08-22] MEDS ORDERED: Heparin 15,000 UNIT in 0.9 % Sodium Chloride 500 ML IV ONE (07:45)
[2021-08-22] MEDS ORDERED: Dextrose 50 % in Water (Vial) 30 ML, Sodium Bicarbonate 20 MEQ, Potassium Chloride 15 M... TH ONE (07:45)
[2021-08-22] MEDS ORDERED: Dextrose 50 % in Water (Vial) 30 ML, Sodium Bicarbonate 20 MEQ, Lidocaine 1% 5 ML, Insu... TH ONE ×3 (07:45)
[2021-08-22] MEDS ORDERED: *HR* Midazolam HCl 5 MG/5 ML VIAL IVP ONE (08:37)
[2021-08-22] MEDS ORDERED: *HR* FentaNYL (PF) 1,000 MCG/20 ML VIAL ONE (08:37)
[2021-08-22] MEDS ORDERED: *HR* Rocuronium Bromide 50 MG/5 ML VIAL ONE (08:38)
[2021-08-22] MEDS ORDERED: *HR* Etomidate 20 MG/10 ML AMPUL IVP ONE (08:39)
[2021-08-22] MEDS ORDERED: Famotidine 20 MG/2 ML VIAL ONE (08:39)
[2021-08-22] MEDS ORDERED: Calcium Gluconate 1,000 MG/10 ML VIAL ONE (08:41)
[2021-08-22] MEDS ORDERED: Tranexamic Acid 1,000 MG/10 ML VIAL ONE ×2 (08:41→11:00)
[2021-08-22] MEDS ORDERED: Protamine Sulfate 250 MG/25 ML VIAL IVP ONE (08:41)
[2021-08-22] MEDS ORDERED: Aspirin 81 MG TAB.CHEW PO ONE (08:42)
[2021-08-22] MEDS ORDERED: Chlorhexidine Rinse 15 ML MOUTHWASH MM ONE (08:42)
[2021-08-22] MEDS ORDERED: NiCARdipine 2.5 MG/10 ML Syringe IVPB ONE (08:44)
[2021-08-22] MEDS ORDERED: Ringers Solution, Lactated 1,000 ML IVC SCH (08:45)
[2021-08-22] MEDS ORDERED: Vancomycin 1,250 MG/262.5 ML IV.SOLN IVPB ONE (09:00)
[2021-08-22 09:38] LABS: ABG Base Excess 1 mEq/L (-2 to 3); ABG Chloride 105 mEq/L (98-107); ABG Glucose 246 mg/dL (60-95); ABG HCO3 28 mEq/L (21-27); ABG Ionized Calcium 1.24 mmol/L (1.15-1.35); ABG Oxygen Saturation 100 % (95-98); ABG PCO2 52 mmHg (35-45); ABG PH 7.33 pH Units (7.32-7.45); ABG PO2 190 mmHg (85-104); ABG TCO2 29 mEq/L (20-26)
[2021-08-22] MEDS ORDERED: niCARdipine 40 MG/200 ML MLS IVC ONE ×2 (09:54→18:15)
[2021-08-22] MEDS ORDERED: *HR* Metoprolol 5 MG/5 ML VIAL IVP ONE (10:08)
[2021-08-22] MEDS ORDERED: ceFAZolin 2,000 MG in Water for inj. (sterile) 20 ML IVP ONE (10:23)
[2021-08-22 11:09] LABS: ABG Base Excess -1 mEq/L (-2 to 3); ABG Chloride 106 mEq/L (98-107); ABG Glucose 327 mg/dL (60-95); ABG HCO3 24 mEq/L (21-27); ABG Ionized Calcium 1.19 mmol/L (1.15-1.35); ABG Oxygen Saturation 95 % (95-98); ABG PCO2 39 mmHg (35-45); ABG PH 7.39 pH Units (7.32-7.45); ABG PO2 76 mmHg (85-104); ABG TCO2 25 mEq/L (20-26)
[2021-08-22 11:17] LABS: ABG Base Excess 0 mEq/L (-2 to 3); ABG Chloride 102 mEq/L (98-107); ABG Glucose 281 mg/dL (60-95); ABG HCO3 25 mEq/L (21-27); ABG Ionized Calcium 1.04 mmol/L (1.15-1.35); ABG Oxygen Saturation 100 % (95-98); ABG PCO2 41 mmHg (35-45); ABG PH 7.39 pH Units (7.32-7.45); ABG PO2 554 mmHg (85-104); ABG TCO2 26 mEq/L (20-26)
[2021-08-22] MEDS ORDERED: Amiodarone Premix 360 MG/200 ML BAG IVC ONE ×2 (11:36→12:00)
[2021-08-22] MEDS ORDERED: *HR* Amiodarone 150 MG/3 ML VIAL IVPB ONE (11:36)
[2021-08-22 11:45] LABS: ABG Base Excess -1 mEq/L (-2 to 3); ABG Chloride 103 mEq/L (98-107); ABG Glucose 264 mg/dL (60-95); ABG HCO3 24 mEq/L (21-27); ABG Ionized Calcium 1.07 mmol/L (1.15-1.35); ABG Oxygen Saturation 100 % (95-98); ABG PCO2 40 mmHg (35-45); ABG PH 7.39 pH Units (7.32-7.45); ABG PO2 558 mmHg (85-104); ABG TCO2 25 mEq/L (20-26)
[2021-08-22] MEDS ORDERED: Albumin Human 5% 12.5 GM/250 ML IV.SOLN ONE ×2 (12:05→12:18)
[2021-08-22 12:19] LABS: ABG Base Excess -4 mEq/L (-2 to 3); ABG Chloride 105 mEq/L (98-107); ABG Glucose 263 mg/dL (60-95); ABG HCO3 22 mEq/L (21-27); ABG Oxygen Saturation 94 % (95-98); ABG PCO2 43 mmHg (35-45); ABG PH 7.32 pH Units (7.32-7.45); ABG PO2 76 mmHg (85-104); ABG TCO2 24 mEq/L (20-26)
[2021-08-22] MEDS ORDERED: *HR* FentaNYL (PF) 100 MCG/2 ML VIAL IVP PRN (12:33)
[2021-08-22] MEDS ORDERED: Potassium Chloride 40 MEQ/200 ML BAG IVPB PRN (12:33)
[2021-08-22] MEDS ORDERED: *HR* Dextrose 50 % in Water (Syg) 50 ML SYRINGE IVP PRN (12:33)
[2021-08-22] MEDS ORDERED: Naloxone 0.4 MG/ML INJ IVP PRN (12:33)
[2021-08-22] MEDS ORDERED: Acetaminophen 325 MG TABLET PO PRN (12:33)
[2021-08-22] MEDS ORDERED: Ondansetron 4 MG/2 ML VIAL IVP PRN (12:33)
[2021-08-22] MEDS ORDERED: Insulin Regular, Human 100 UNIT/ML IV PRN (12:33)
[2021-08-22] MEDS ORDERED: Acetaminophen 650 MG RECTAL SUPP RC PRN (12:33)
[2021-08-22] MEDS ORDERED: 0.9 % Sodium Chloride w KCl 20 MEQ/1,000 ML MLS IVC SCH (12:45)
[2021-08-22] MEDS: Norepinephrine 4 MG/254 ML IV.SOLN IVC SCH ×3 (13:10→23:42)
[2021-08-22 13:29] LABS: ABG Base Excess -3 mEq/L (-2 to 3); ABG HCO3 23 mEq/L (21-27); ABG Oxygen Saturation 94 % (95-98); ABG PCO2 43 mmHg (35-45); ABG PH 7.33 pH Units (7.32-7.45); ABG PO2 75 mmHg (85-104); ABG TCO2 24 mEq/L (20-26); Blood Gas Modality ASSIST CONTROL; Blood Gas VT 700 cc
[2021-08-22 13:35] LABS: Basophils # 0.1 K/mcL (0.0-0.2); Basophils % 0.3 %; Eosinophils # 0.2 K/mcL (0.0-0.6); Eosinophils % 0.9 %; Hematocrit 28.1 % (35.3-44.9); Hemoglobin 8.9 g/dL (11.5-15.4); Immature Granulocytes % 0.7 % (0-4); Lymphocytes # 2.2 K/mcL (0.6-4.6); Lymphocytes % 10.4 %; Mean Corpuscular HGB Conc 31.7 g/dL (31.6-35.5); Mean Corpuscular Hemoglobin 28.2 pg (28.0-33.3); Mean Corpuscular Volume 88.9 fL (83.0-100.0); Mean Platelet Volume 10.1 fL (9.4-12.4); Monocytes # 0.7 K/mcL (0.0-1.3); Monocytes % 3.1 %; Neutrophils # 17.8 K/mcL (1.6-8.9); Platelet Count 254 K/mcL (140-400); Red Blood Count 3.16 M/mcL (3.82-4.97); Red Cell Distribution Width 14.7 % (11.5-14.5); Segmented Neutrophils % 84.6 %; White Blood Count 21.1 K/mcL (4.3-11.1)
[2021-08-22 13:54] LABS: BUN/Creatinine Ratio 20 (6-26); Blood Urea Nitrogen 21 mg/dL (6-20); Calcium 8.6 mg/dL (8.6-10.3); Carbon Dioxide 23 mEq/L (23-29); Chloride 108 mEq/L (98-107); Glucose 199 mg/dL (70-105); Magnesium 2.4 mg/dL (1.6-2.6); Osmolality,Calculated 299 (280-300); Potassium 3.6 mEq/L (3.5-5.1); Sodium 140 mEq/L (136-145); eGFR For African Americans > 60 (> 60); eGFR For Non-African Americans 55 (> 60)
[2021-08-22 14:01] LABS: INR 1.3; Prothrombin Time 14.7 Seconds (9.4-12.1)
[2021-08-22 14:04] LABS: Activated Partial Thrombo Time 30.6 Seconds (26.0-36.0)
[2021-08-22] MEDS: Pantoprazole 40 MG VIAL IVP SCH (14:37)
[2021-08-22] MEDS: niCARdipine 20 MG/200 ML MLS IVC SCH ×4 (17:11→23:42)
[2021-08-22] MEDS: *HR* OxyCODONE/APAP 5/325 TABLET PO PRN ×2 (17:11→21:12)
[2021-08-22] MEDS: CeFAZolin 2 GM/120 ML BAG IVPB SCH (17:27)
[2021-08-22] MEDS: Amiodarone Premix 360 MG/200 ML BAG IVC SCH (17:37)
[2021-08-22] MEDS: Ketorolac 15 MG/ML VIAL IVP SCH ×2 (17:39→23:42)
[2021-08-22] MEDS: Metoclopramide 10 MG/2 ML VIAL IVP SCH ×2 (17:39→23:41)
[2021-08-22 17:43] LABS: ABG Base Excess 0 mEq/L (-2 to 3); ABG HCO3 24 mEq/L (21-27); ABG Oxygen Saturation 98 % (95-98); ABG PCO2 35 mmHg (35-45); ABG PH 7.44 pH Units (7.32-7.45); ABG PO2 96 mmHg (85-104); ABG TCO2 25 mEq/L (20-26); Blood Gas VT 700 cc
[2021-08-22] MEDS: Albumin Human 5% 12.5 GM/250 ML IV.SOLN IVPB PRN ×2 (19:30→20:52)
[2021-08-22] MEDS: Chlorhexidine Rinse 15 ML MOUTHWASH MM SCH (20:51)
[2021-08-22 23:56] LABS: ABG Base Excess -2 mEq/L (-2 to 3); ABG HCO3 22 mEq/L (21-27); ABG Oxygen Saturation 92 % (95-98); ABG PCO2 36 mmHg (35-45); ABG PO2 64 mmHg (85-104); ABG TCO2 23 mEq/L (20-26); Blood Gas Pressure Support 10 cm H2O
[2021-08-23] MEDS: *HR* OxyCODONE/APAP 5/325 TABLET PO PRN ×5 (01:05→21:03)
[2021-08-23] MEDS: CeFAZolin 2 GM/120 ML BAG IVPB SCH (01:15)
[2021-08-23] MEDS ORDERED: 0.9 % Sodium Chloride 500 ML ONE (03:17)
[2021-08-23] MEDS: niCARdipine 20 MG/200 ML MLS IVC SCH ×5 (04:13→21:01)
[2021-08-23 04:19] LABS: INR 1.1; Prothrombin Time 12.5 Seconds (9.4-12.1)
[2021-08-23 04:21] LABS: Activated Partial Thrombo Time 30.6 Seconds (26.0-36.0)
[2021-08-23 04:31] LABS: Calcium 8.4 mg/dL (8.6-10.3); Magnesium 2.4 mg/dL (1.6-2.6); Potassium 4.6 mEq/L (3.5-5.1)
[2021-08-23] MEDS: Amiodarone Premix 360 MG/200 ML BAG IVC SCH ×2 (05:09→17:05)
[2021-08-23] MEDS: Ketorolac 15 MG/ML VIAL IVP SCH (05:10)
[2021-08-23] MEDS: Metoclopramide 10 MG/2 ML VIAL IVP SCH ×4 (05:10→23:58)
[2021-08-23] MEDS: Albumin Human 5% 12.5 GM/250 ML IV.SOLN IVPB PRN ×2 (05:23→05:54)
[2021-08-23] MEDS ORDERED: D5% in Water 1,000 ML IVC PRN (07:25)
[2021-08-23] MEDS ORDERED: *HR* Dextrose 50 % in Water (Syg) 50 ML SYRINGE IVP PRN (07:25)
[2021-08-23] MEDS ORDERED: Dextrose Gel 15 GM/37.5 ML TUBE PO PRN ×2 (07:25)
[2021-08-23] MEDS ORDERED: 0.9 % Sodium Chloride w KCl 20 MEQ/1,000 ML MLS IVC SCH (07:30)
[2021-08-23] MEDS: Chlorhexidine Rinse 15 ML MOUTHWASH MM SCH ×2 (07:38→21:03)
[2021-08-23] MEDS: Pantoprazole 40 MG VIAL IVP SCH (07:38)
[2021-08-23] MEDS: Furosemide 20 MG/2 ML VIAL IVP SCH ×2 (07:38→21:03)
[2021-08-23] MEDS: Insulin LISPRO 300 UNITS/3 ML VIAL SUBQ SCH ×3 (08:29→17:21)
[2021-08-23] MEDS: 0.9 % Sodium Chloride 1,000 ML IVC SCH ×2 (08:29→20:58)
[2021-08-23 08:59] LABS: Basophils # 0.1 K/mcL (0.0-0.2); Basophils % 0.3 %; Eosinophils # 0.2 K/mcL (0.0-0.6); Eosinophils % 1.3 %; Hematocrit 30.8 % (35.3-44.9); Hemoglobin 9.4 g/dL (11.5-15.4); Immature Granulocytes % 0.3 % (0-4); Lymphocytes # 3.5 K/mcL (0.6-4.6); Lymphocytes % 19.4 %; Mean Corpuscular HGB Conc 30.5 g/dL (31.6-35.5); Mean Corpuscular Hemoglobin 27.3 pg (28.0-33.3); Mean Corpuscular Volume 89.5 fL (83.0-100.0); Mean Platelet Volume 10.7 fL (9.4-12.4); Monocytes # 1.8 K/mcL (0.0-1.3); Monocytes % 10.2 %; Neutrophils # 12.3 K/mcL (1.6-8.9); Platelet Count 309 K/mcL (140-400); Red Blood Count 3.44 M/mcL (3.82-4.97); Red Cell Distribution Width 15.3 % (11.5-14.5); Segmented Neutrophils % 68.5 %; White Blood Count 17.9 K/mcL (4.3-11.1)
[2021-08-23] MEDS: *HR* FentaNYL (PF) 100 MCG/2 ML VIAL IVP PRN ×2 (15:40→23:59)
[2021-08-23] MEDS: Norepinephrine 4 MG/254 ML IV.SOLN IVC SCH ×2 (15:49→23:35)
[2021-08-23] MEDS: *HR* Heparin 5,000 UNIT/ML VIAL SQ SCH (17:04)
[2021-08-23] MEDS ORDERED: Insulin LISPRO 300 UNITS/3 ML VIAL SUBQ SCH (21:00)
[2021-08-24] MEDS: niCARdipine 20 MG/200 ML MLS IVC SCH ×7 (00:01→23:25)
[2021-08-24] MEDS: *HR* OxyCODONE/APAP 5/325 TABLET PO PRN ×2 (01:07→05:03)
[2021-08-24] MEDS: *HR* FentaNYL (PF) 100 MCG/2 ML VIAL IVP PRN (03:37)
[2021-08-24 04:06] LABS: Basophils % 0.2 %; Eosinophils % 0.1 %; Hematocrit 35.8 % (35.3-44.9); Hemoglobin 10.8 g/dL (11.5-15.4); Immature Granulocytes % 0.7 % (0-4); Lymphocytes # 1.8 K/mcL (0.6-4.6); Lymphocytes % 9.8 %; Mean Corpuscular HGB Conc 30.2 g/dL (31.6-35.5); Mean Corpuscular Hemoglobin 27.1 pg (28.0-33.3); Mean Corpuscular Volume 89.7 fL (83.0-100.0); Mean Platelet Volume 11.5 fL (9.4-12.4); Monocytes # 1.5 K/mcL (0.0-1.3); Monocytes % 8.3 %; Neutrophils # 14.8 K/mcL (1.6-8.9); Platelet Count 296 K/mcL (140-400); Red Blood Count 3.99 M/mcL (3.82-4.97); Red Cell Distribution Width 14.9 % (11.5-14.5); Segmented Neutrophils % 80.9 %; White Blood Count 18.2 K/mcL (4.3-11.1)
[2021-08-24] MEDS: Norepinephrine 4 MG/254 ML IV.SOLN IVC SCH ×3 (04:44→22:52)
[2021-08-24] MEDS: Amiodarone Premix 360 MG/200 ML BAG IVC SCH ×2 (05:04→17:06)
[2021-08-24 05:56] LABS: ABG Base Excess -16 mEq/L (-2 to 3); ABG HCO3 11 mEq/L (21-27); ABG Oxygen Saturation 80 % (95-98); ABG PCO2 31 mmHg (35-45); ABG PH 7.17 pH Units (7.32-7.45); ABG PO2 55 mmHg (85-104); ABG TCO2 12 mEq/L (20-26)
[2021-08-24] MEDS ORDERED: *HR* Dextrose 50 % in Water (Syg) 50 ML SYRINGE ONE (06:06)
[2021-08-24 06:14] LABS: Potassium 7.2 mEq/L (3.5-5.1)
[2021-08-24] MEDS ORDERED: Calcium Gluconate 1gm/50mL 1 GM/50 ML BAG IVPB ONE ×2 (06:17→12:37)
[2021-08-24] MEDS ORDERED: SODIUM ZIRCONIUM CYCLOSILICATE 5 GM POWD.PACK PO ONE (06:18)
[2021-08-24] MEDS ORDERED: SODIUM ZIRCONIUM CYCLOSILICATE 5 GM POWD.PACK PO SCH (06:18)
[2021-08-24] MEDS ORDERED: 0.9 % Sodium Chloride 500 ML IVC ONE (06:19)
[2021-08-24] MEDS ORDERED: Insulin Human Regular 10 UNIT in 0.9 % Sodium Chloride 10 ML IV ONE (06:20)
[2021-08-24] MEDS ORDERED: 0.9 % Sodium Chloride 500 ML ONE (06:31)
[2021-08-24] MEDS ORDERED: 0.9 % Sodium Chloride 1,000 ML ONE (06:31)
[2021-08-24 06:32] LABS: ABG Base Excess -12 mEq/L (-2 to 3); ABG HCO3 15 mEq/L (21-27); ABG Oxygen Saturation 85 % (95-98); ABG PCO2 34 mmHg (35-45); ABG PH 7.25 pH Units (7.32-7.45); ABG PO2 58 mmHg (85-104); ABG TCO2 16 mEq/L (20-26); Blood Gas Modality ASSIST CONTROL; Blood Gas VT 450 cc
[2021-08-24] MEDS ORDERED: Artificial Tears SOLN 15 ML BOTTLE BOTH EYES PRN (06:38)
[2021-08-24] MEDS: *HR* Heparin 5,000 UNIT/ML VIAL SQ SCH (06:46)
[2021-08-24] MEDS: Metoclopramide 10 MG/2 ML VIAL IVP SCH ×4 (06:46→23:24)
[2021-08-24] MEDS: Sodium Bicarbonate 150 MEQ in D5% in Water 1,000 ML IVC SCH ×2 (06:51→18:49)
[2021-08-24] MEDS: FentaNYL (PF) 1,000 MCG/100 ML IV.SOLN IVC SCH ×2 (06:55→17:11)
[2021-08-24] MEDS ORDERED: Perflutren Lipid Microsphere 1.3 ML in 0.9 % Sodium Chloride 8.7 ML IVP PRN (07:07)
[2021-08-24 08:53] LABS: VBG Ionized Calcium 1.01 mmol/L (1.15-1.35)
[2021-08-24] MEDS ORDERED: Aspirin Enteric Coated 81 MG Tablet PO SCH (09:00)
[2021-08-24] MEDS ORDERED: Chlorhexidine Rinse 15 ML MOUTHWASH MM SCH (09:00)
[2021-08-24 09:05] LABS: Amorphous Sediment,Urine Few per hpf (None-Few); Bacteria,Urine Few per hpf (None-Few); Bilirubin,Urine Negative (Negative); Blood,Urine Large (Negative); Clarity,Urine Turbid (Clear); Color,Urine Yellow (Yellow); Glucose,Urine (UA) 30 mg/dL (Normal); Hyaline Casts,Urine Moderate per lpf (None Seen); Ketones,Urine Negative (Negative); Leukocyte Esterase,Urine Small (Negative); Mucus,Urine Few per lpf (None-Few); Nitrite,Urine Negative (Negative); PH,Urine 5.5 pH Units (5.0-8.0); Protein,Urine 70 mg/dL (Neg-Trace); RBC,Urine 50-100 per hpf (0-3); Specific Gravity,Urine 1.024 (1.010-1.025); Squamous Epithelial Cell,Urine Few per hpf (None-Few); Urobilinogen,Urine Normal (Normal); WBC,Urine 15-30 per hpf (0-3)
[2021-08-24 09:06] LABS: ABG Base Excess -9 mEq/L (-2 to 3); ABG HCO3 17 mEq/L (21-27); ABG Oxygen Saturation 94 % (95-98); ABG PCO2 34 mmHg (35-45); ABG PO2 77 mmHg (85-104); ABG TCO2 18 mEq/L (20-26); Blood Gas Modality ASSIST CONTROL; Blood Gas VT 450 cc
[2021-08-24 09:30] LABS: Creatinine,Urine 112 mg/dL; Sodium, Urine < 10.0 mEq/L
[2021-08-24] MEDS: Pantoprazole 40 MG VIAL IVP SCH (09:33)
[2021-08-24 09:34] LABS: Calcium 7.5 mg/dL (8.6-10.3); Magnesium 2.4 mg/dL (1.6-2.6); Potassium 5.1 mEq/L (3.5-5.1)
[2021-08-24] MEDS: Chlorhexidine Rinse 15 ML MOUTHWASH MM SCH ×2 (09:34→20:59)
[2021-08-24] MEDS: Artificial Tears SOLN 15 ML BOTTLE BOTH EYES SCH ×5 (09:34→23:24)
[2021-08-24] MEDS: Furosemide 20 MG/2 ML VIAL IVP SCH ×2 (09:45→20:56)
[2021-08-24 10:00] LABS: Heparin anti-factor XA UFH < 0.04 IU/mL (0.30-0.70); INR 1.6; Prothrombin Time 18.1 Seconds (9.4-12.1)
[2021-08-24] MEDS ORDERED: Aspirin 81 MG TAB.CHEW PO SCH (10:00)
[2021-08-24] MEDS ORDERED: *HR* Heparin 5,000 UNIT/ML VIAL IVP PRN ×2 (10:09)
[2021-08-24] MEDS: 0.9 % Sodium Chloride 1,000 ML IVC SCH ×2 (10:12→22:52)
[2021-08-24] MEDS: Albumin Human 5% 12.5 GM/250 ML IV.SOLN IVC SCH ×4 (10:22→20:20)
[2021-08-24] MEDS: Docusate Oral Soln 100 MG/10 ML UDC GTUBE SCH ×2 (10:28→20:59)
[2021-08-24] MEDS: Heparin 25,000UNIT/250ML 1/2NS 25,000 UNIT/250 ML IV.SOLN IVC SCH (11:05)
[2021-08-24] MEDS ORDERED: *HR* Rocuronium Bromide 50 MG/5 ML VIAL IVP ONE (15:17)
[2021-08-24] MEDS ORDERED: *HR* Etomidate 20 MG/10 ML AMPUL IVP ONE (15:17)
[2021-08-24] MEDS ORDERED: *HR* Midazolam HCl 5 MG/5 ML VIAL IVP ONE (15:17)
[2021-08-24 17:38] LABS: Basophils # 0.1 K/mcL (0.0-0.2); Basophils % 0.3 %; Eosinophils # 0.1 K/mcL (0.0-0.6); Eosinophils % 0.3 %; Hematocrit 29.3 % (35.3-44.9); Hemoglobin 9.3 g/dL (11.5-15.4); Immature Granulocytes % 0.4 % (0-4); Lymphocytes # 3.9 K/mcL (0.6-4.6); Lymphocytes % 20.9 %; Mean Corpuscular HGB Conc 31.7 g/dL (31.6-35.5); Mean Corpuscular Hemoglobin 27.9 pg (28.0-33.3); Mean Platelet Volume 11.9 fL (9.4-12.4); Monocytes # 1.2 K/mcL (0.0-1.3); Monocytes % 6.5 %; Neutrophils # 13.3 K/mcL (1.6-8.9); Platelet Count 224 K/mcL (140-400); Red Blood Count 3.33 M/mcL (3.82-4.97); Red Cell Distribution Width 14.8 % (11.5-14.5); Segmented Neutrophils % 71.6 %; White Blood Count 18.6 K/mcL (4.3-11.1)
[2021-08-24 17:40] LABS: ABG Base Excess -5 mEq/L (-2 to 3); ABG HCO3 20 mEq/L (21-27); ABG Oxygen Saturation 97 % (95-98); ABG PCO2 35 mmHg (35-45); ABG PH 7.36 pH Units (7.32-7.45); ABG PO2 91 mmHg (85-104); ABG TCO2 21 mEq/L (20-26); Blood Gas Modality ASSIST CONTROL; Blood Gas VT 450 cc
[2021-08-24 17:57] LABS: Calcium 6.9 mg/dL (8.6-10.3); Potassium 4.1 mEq/L (3.5-5.1)
[2021-08-24] MEDS ORDERED: Cefepime HCl 1,000 MG in 0.9 % Sodium Chloride Mini Bag 100 ML IVPB SCH (18:00)
[2021-08-24] MEDS: Midazolam HCl 50 MG/100 ML IV.SOLN IVC SCH (19:11)
[2021-08-24] MEDS: Cefepime HCl 2,000 MG in Water for inj. (sterile) 20 ML IVP SCH (20:50)
[2021-08-25] MEDS ORDERED: Cefepime HCl 2,000 MG in 0.9 % Sodium Chloride Mini Bag 100 ML IVPB SCH
[2021-08-25 00:10] LABS: ABG Base Excess -4 mEq/L (-2 to 3); ABG HCO3 20 mEq/L (21-27); ABG Oxygen Saturation 94 % (95-98); ABG PCO2 33 mmHg (35-45); ABG PH 7.41 pH Units (7.32-7.45); ABG PO2 69 mmHg (85-104); ABG TCO2 21 mEq/L (20-26); Blood Gas Modality AF; Blood Gas VT 450 cc
[2021-08-25 00:23] LABS: Basophils % 0.2 %; Eosinophils # 0.1 K/mcL (0.0-0.6); Immature Granulocytes % 0.3 % (0-4); Lymphocytes # 3.7 K/mcL (0.6-4.6); Lymphocytes % 26.1 %; Mean Corpuscular Hemoglobin 27.3 pg (28.0-33.3); Mean Corpuscular Volume 85.3 fL (83.0-100.0); Mean Platelet Volume 11.9 fL (9.4-12.4); Monocytes # 0.7 K/mcL (0.0-1.3); Monocytes % 5.3 %; Neutrophils # 9.4 K/mcL (1.6-8.9); Nucleated Red Blood Cells 0.1 /100 WBC (0); Platelet Count 178 K/mcL (140-400); Red Blood Count 2.93 M/mcL (3.82-4.97); Red Cell Distribution Width 14.7 % (11.5-14.5); Segmented Neutrophils % 67.1 %
[2021-08-25 00:34] LABS: Calcium 6.6 mg/dL (8.6-10.3); Potassium 3.4 mEq/L (3.5-5.1)
[2021-08-25] MEDS: Heparin 25,000UNIT/250ML 1/2NS 25,000 UNIT/250 ML IV.SOLN IVC SCH ×3 (02:03→21:00)
[2021-08-25] MEDS: Artificial Tears SOLN 15 ML BOTTLE BOTH EYES SCH ×5 (03:50→20:12)
[2021-08-25] MEDS: niCARdipine 20 MG/200 ML MLS IVC SCH ×5 (03:50→20:50)
[2021-08-25 04:28] LABS: ABG Base Excess -3 mEq/L (-2 to 3); ABG HCO3 21 mEq/L (21-27); ABG Oxygen Saturation 93 % (95-98); ABG PCO2 34 mmHg (35-45); ABG PH 7.41 pH Units (7.32-7.45); ABG PO2 66 mmHg (85-104); ABG TCO2 22 mEq/L (20-26); Blood Gas Modality AF; Blood Gas VT 450 cc
[2021-08-25 04:36] LABS: Hematocrit 25.1 % (35.3-44.9)
[2021-08-25] MEDS: Amiodarone Premix 360 MG/200 ML BAG IVC SCH ×2 (05:32→16:23)
[2021-08-25] MEDS: Sodium Bicarbonate 150 MEQ in D5% in Water 1,000 ML IVC SCH (05:42)
[2021-08-25] MEDS: FentaNYL (PF) 1,000 MCG/100 ML IV.SOLN IVC SCH (05:43)
[2021-08-25] MEDS ORDERED: Calcium Gluconate 1gm/50mL 1 GM/50 ML BAG IVPB ONE (05:46)
[2021-08-25] MEDS: Metoclopramide 10 MG/2 ML VIAL IVP SCH ×3 (05:59→17:50)
[2021-08-25] MEDS: Pantoprazole 40 MG VIAL IVP SCH ×2 (05:59→17:49)
[2021-08-25] MEDS: Midazolam HCl 50 MG/100 ML IV.SOLN IVC SCH (06:05)
[2021-08-25] MEDS: Cefepime HCl 2,000 MG in Water for inj. (sterile) 20 ML IVP SCH (06:24)
[2021-08-25 08:03] LABS: Basophils # 0.1 K/mcL (0.0-0.2); Basophils % 0.3 %; Eosinophils # 0.2 K/mcL (0.0-0.6); Eosinophils % 0.9 %; Hematocrit 25.8 % (35.3-44.9); Hemoglobin 8.3 g/dL (11.5-15.4); Immature Granulocytes % 0.6 % (0-4); Lymphocytes # 3.7 K/mcL (0.6-4.6); Lymphocytes % 21.6 %; Mean Corpuscular HGB Conc 32.2 g/dL (31.6-35.5); Mean Corpuscular Hemoglobin 27.5 pg (28.0-33.3); Mean Corpuscular Volume 85.4 fL (83.0-100.0); Monocytes % 5.8 %; Neutrophils # 12.1 K/mcL (1.6-8.9); Nucleated Red Blood Cells 0.3 /100 WBC (0); Platelet Count 177 K/mcL (140-400); Red Blood Count 3.02 M/mcL (3.82-4.97); Segmented Neutrophils % 70.8 %; White Blood Count 17.1 K/mcL (4.3-11.1)
[2021-08-25] MEDS: Chlorhexidine Rinse 15 ML MOUTHWASH MM SCH ×2 (08:11→20:11)
[2021-08-25 08:20] LABS: Calcium 6.9 mg/dL (8.6-10.3); Potassium 3.3 mEq/L (3.5-5.1)
[2021-08-25 09:41] LABS: VBG Ionized Calcium 0.91 mmol/L (1.15-1.35)
[2021-08-25] MEDS: Docusate Oral Soln 100 MG/10 ML UDC GTUBE SCH ×2 (10:05→20:50)
[2021-08-25] MEDS: Furosemide 40 MG/4 ML VIAL IVP SCH ×2 (10:10→20:12)
[2021-08-25] MEDS: Calcium Gluconate 1gm/50mL 1 GM/50 ML BAG IVPB PRN (10:12)
[2021-08-25] MEDS: Norepinephrine 4 MG/254 ML IV.SOLN IVC SCH ×2 (15:21→17:46)
[2021-08-25 15:24] LABS: Basophils % 0.2 %; Eosinophils # 0.1 K/mcL (0.0-0.6); Eosinophils % 0.7 %; Hematocrit 25.2 % (35.3-44.9); Hemoglobin 8.1 g/dL (11.5-15.4); Immature Granulocytes % 0.7 % (0-4); Lymphocytes # 1.9 K/mcL (0.6-4.6); Lymphocytes % 9.1 %; Mean Corpuscular HGB Conc 32.1 g/dL (31.6-35.5); Mean Corpuscular Hemoglobin 27.7 pg (28.0-33.3); Mean Corpuscular Volume 86.3 fL (83.0-100.0); Mean Platelet Volume 12.1 fL (9.4-12.4); Monocytes # 1.1 K/mcL (0.0-1.3); Monocytes % 5.2 %; Neutrophils # 17.5 K/mcL (1.6-8.9); Nucleated Red Blood Cells 0.5 /100 WBC (0); Platelet Count 179 K/mcL (140-400); Red Blood Count 2.92 M/mcL (3.82-4.97); Red Cell Distribution Width 14.8 % (11.5-14.5); Segmented Neutrophils % 84.1 %; White Blood Count 20.8 K/mcL (4.3-11.1)
[2021-08-25 15:29] LABS: ABG Base Excess -2 mEq/L (-2 to 3); ABG HCO3 22 mEq/L (21-27); ABG Oxygen Saturation 94 % (95-98); ABG PCO2 35 mmHg (35-45); ABG PH 7.41 pH Units (7.32-7.45); ABG PO2 71 mmHg (85-104); ABG TCO2 23 mEq/L (20-26); Blood Gas VT 450 cc
[2021-08-25 15:31] LABS: VBG Ionized Calcium 0.92 mmol/L (1.15-1.35)
[2021-08-25] MEDS ORDERED: Bumetanide 1 MG/4 ML VIAL IVP ONE (15:33)
[2021-08-25 15:43] LABS: Calcium 6.8 mg/dL (8.6-10.3); Potassium 3.5 mEq/L (3.5-5.1)
[2021-08-25] MEDS ORDERED: D5% in Water 250 ML ONE (20:34)
[2021-08-25 23:23] LABS: VBG Ionized Calcium 0.89 mmol/L (1.15-1.35)
[2021-08-25 23:38] LABS: Calcium 6.5 mg/dL (8.6-10.3); Magnesium 1.8 mg/dL (1.6-2.6); Potassium 3.4 mEq/L (3.5-5.1)
[2021-08-25 23:39] LABS: Basophils % 0.2 %; Eosinophils # 0.3 K/mcL (0.0-0.6); Eosinophils % 1.3 %; Hematocrit 25.1 % (35.3-44.9); Hemoglobin 8.2 g/dL (11.5-15.4); Immature Granulocytes % 0.8 % (0-4); Lymphocytes # 2.1 K/mcL (0.6-4.6); Lymphocytes % 9.6 %; Mean Corpuscular HGB Conc 32.7 g/dL (31.6-35.5); Mean Corpuscular Hemoglobin 27.9 pg (28.0-33.3); Mean Corpuscular Volume 85.4 fL (83.0-100.0); Mean Platelet Volume 11.9 fL (9.4-12.4); Monocytes # 0.9 K/mcL (0.0-1.3); Monocytes % 4.4 %; Neutrophils # 17.8 K/mcL (1.6-8.9); Platelet Count 175 K/mcL (140-400); Red Blood Count 2.94 M/mcL (3.82-4.97); Red Cell Distribution Width 14.8 % (11.5-14.5); Segmented Neutrophils % 83.7 %; White Blood Count 21.3 K/mcL (4.3-11.1)
[2021-08-25 23:50] LABS: ABG Base Excess -3 mEq/L (-2 to 3); ABG HCO3 21 mEq/L (21-27); ABG Oxygen Saturation 93 % (95-98); ABG PCO2 33 mmHg (35-45); ABG PH 7.41 pH Units (7.32-7.45); ABG PO2 66 mmHg (85-104); ABG TCO2 22 mEq/L (20-26); Blood Gas Modality ASSIST CONTROL; Blood Gas VT 450 cc
[2021-08-26] MEDS: Artificial Tears SOLN 15 ML BOTTLE BOTH EYES SCH ×7 (00:03→23:19)
[2021-08-26] MEDS: Sodium Bicarbonate 150 MEQ in D5% in Water 1,000 ML IVC SCH ×3 (00:04→16:14)
[2021-08-26] MEDS: niCARdipine 20 MG/200 ML MLS IVC SCH ×7 (00:04→23:20)
[2021-08-26] MEDS: Calcium Gluconate 1gm/50mL 1 GM/50 ML BAG IVPB PRN ×2 (00:37→08:50)
[2021-08-26] MEDS: Norepinephrine 4 MG/254 ML IV.SOLN IVC SCH ×4 (00:48→23:20)
[2021-08-26] MEDS: FentaNYL (PF) 1,000 MCG/100 ML IV.SOLN IVC SCH ×2 (01:45→21:10)
[2021-08-26] MEDS: Amiodarone Premix 360 MG/200 ML BAG IVC SCH ×2 (04:19→16:08)
[2021-08-26 05:39] LABS: ABG Base Excess -3 mEq/L (-2 to 3); ABG HCO3 21 mEq/L (21-27); ABG Oxygen Saturation 93 % (95-98); ABG PCO2 33 mmHg (35-45); ABG PH 7.41 pH Units (7.32-7.45); ABG PO2 64 mmHg (85-104); ABG TCO2 22 mEq/L (20-26); Blood Gas Modality ASSIST CONTROL; Blood Gas VT 450 cc
[2021-08-26] MEDS: Pantoprazole 40 MG VIAL IVP SCH ×2 (06:31→17:30)
[2021-08-26] MEDS: Cefepime HCl 2,000 MG in Water for inj. (sterile) 20 ML IVP SCH (06:32)
[2021-08-26] MEDS: Midazolam HCl 50 MG/100 ML IV.SOLN IVC SCH (06:36)
[2021-08-26 07:42] LABS: VBG Ionized Calcium 0.89 mmol/L (1.15-1.35)
[2021-08-26 07:45] LABS: Basophils % 0.2 %; Eosinophils # 0.3 K/mcL (0.0-0.6); Eosinophils % 1.4 %; Hematocrit 24.2 % (35.3-44.9); Hemoglobin 7.8 g/dL (11.5-15.4); Immature Granulocytes % 0.8 % (0-4); Lymphocytes % 8.9 %; Mean Corpuscular HGB Conc 32.2 g/dL (31.6-35.5); Mean Corpuscular Hemoglobin 27.2 pg (28.0-33.3); Mean Corpuscular Volume 84.3 fL (83.0-100.0); Mean Platelet Volume 12.3 fL (9.4-12.4); Monocytes # 1.6 K/mcL (0.0-1.3); Monocytes % 7.2 %; Neutrophils # 18.3 K/mcL (1.6-8.9); Nucleated Red Blood Cells 0.8 /100 WBC (0); Platelet Count 173 K/mcL (140-400); Red Blood Count 2.87 M/mcL (3.82-4.97); Red Cell Distribution Width 14.7 % (11.5-14.5); Segmented Neutrophils % 81.5 %; White Blood Count 22.4 K/mcL (4.3-11.1)
[2021-08-26] MEDS: Docusate Oral Soln 100 MG/10 ML UDC GTUBE SCH ×2 (08:00→19:57)
[2021-08-26] MEDS: Chlorhexidine Rinse 15 ML MOUTHWASH MM SCH ×2 (08:00→19:56)
[2021-08-26 10:40] LABS: Calcium 6.9 mg/dL (8.6-10.3); Potassium 3.8 mEq/L (3.5-5.1)
[2021-08-26] MEDS ORDERED: 0.9 % Sodium Chloride 500 ML ONE (12:37)
[2021-08-26] MEDS ORDERED: *HR* Heparin 5,000 UNIT/ML VIAL ONE (12:56)
[2021-08-26] MEDS ORDERED: 0.9 % Sodium Chloride 1,000 ML ONE (15:13)
[2021-08-26 16:05] LABS: VBG Ionized Calcium 0.93 mmol/L (1.15-1.35)
[2021-08-26 16:12] LABS: Basophils % 0.1 %; Eosinophils # 0.2 K/mcL (0.0-0.6); Eosinophils % 0.8 %; Hematocrit 24.6 % (35.3-44.9); Immature Granulocytes % 0.8 % (0-4); Lymphocytes # 1.7 K/mcL (0.6-4.6); Lymphocytes % 8.1 %; Mean Corpuscular HGB Conc 32.5 g/dL (31.6-35.5); Mean Corpuscular Hemoglobin 27.6 pg (28.0-33.3); Mean Corpuscular Volume 84.8 fL (83.0-100.0); Mean Platelet Volume 12.6 fL (9.4-12.4); Monocytes # 1.7 K/mcL (0.0-1.3); Monocytes % 8.1 %; Neutrophils # 17.4 K/mcL (1.6-8.9); Nucleated Red Blood Cells 1.3 /100 WBC (0); Platelet Count 176 K/mcL (140-400); Red Cell Distribution Width 14.7 % (11.5-14.5); Segmented Neutrophils % 82.1 %; White Blood Count 21.2 K/mcL (4.3-11.1)
[2021-08-26] MEDS: PrismaSATE BGK 4/2.5 5,000 ML CRRT SCH ×5 (16:12→23:02)
[2021-08-26] MEDS ORDERED: Calcium Chloride 2,000 MG in 0.9 % Sodium Chloride 100 ML IVPB ONE (16:30)
[2021-08-26 16:34] LABS: Magnesium 2.1 mg/dL (1.6-2.6)
[2021-08-26] MEDS: *HR* Heparin 5,000 UNIT/ML VIAL SQ SCH (17:28)
[2021-08-26] MEDS ORDERED: *HR* Dextrose 50 % in Water (Syg) 50 ML SYRINGE IVP PRN (18:34)
[2021-08-26] MEDS ORDERED: Dextrose Gel 15 GM/37.5 ML TUBE PO PRN ×2 (18:34)
[2021-08-26] MEDS ORDERED: D5% in Water 1,000 ML IVC PRN (18:34)
[2021-08-26] MEDS: Insulin LISPRO 300 UNITS/3 ML VIAL SUBQ SCH ×2 (20:00→23:20)
[2021-08-27 00:25] LABS: VBG Ionized Calcium 1.04 mmol/L (1.15-1.35)
[2021-08-27] MEDS: niCARdipine 20 MG/200 ML MLS IVC SCH ×7 (01:07→22:53)
[2021-08-27] MEDS: Calcium Gluconate 1gm/50mL 1 GM/50 ML BAG IVPB SCH ×2 (01:18→02:21)
[2021-08-27] MEDS: PrismaSATE BGK 4/2.5 5,000 ML CRRT SCH ×13 (02:17→21:35)
[2021-08-27] MEDS: Midazolam HCl 50 MG/100 ML IV.SOLN IVC SCH ×2 (02:31→22:52)
[2021-08-27] MEDS: Insulin LISPRO 300 UNITS/3 ML VIAL SUBQ SCH ×6 (03:27→23:10)
[2021-08-27] MEDS: Artificial Tears SOLN 15 ML BOTTLE BOTH EYES SCH ×6 (03:27→23:10)
[2021-08-27 04:04] LABS: ABG Base Excess -3 mEq/L (-2 to 3); ABG HCO3 21 mEq/L (21-27); ABG Oxygen Saturation 92 % (95-98); ABG PCO2 31 mmHg (35-45); ABG PH 7.44 pH Units (7.32-7.45); ABG PO2 59 mmHg (85-104); ABG TCO2 22 mEq/L (20-26); Blood Gas Modality ASSIST CONTROL; Blood Gas VT 450 cc
[2021-08-27] MEDS: Amiodarone Premix 360 MG/200 ML BAG IVC SCH (04:24)
[2021-08-27 04:49] LABS: Potassium 4.6 mEq/L (3.5-5.1)
[2021-08-27] MEDS: Pantoprazole 40 MG VIAL IVP SCH ×2 (05:10→17:07)
[2021-08-27] MEDS: Cefepime HCl 2,000 MG in Water for inj. (sterile) 20 ML IVP SCH (05:10)
[2021-08-27] MEDS: *HR* Heparin 5,000 UNIT/ML VIAL SQ SCH ×2 (05:10→17:07)
[2021-08-27 05:19] LABS: Albumin 2.8 g/dL (3.5-5.7); Magnesium 2.3 mg/dL (1.6-2.6); Phosphorous 5.1 mg/dL (2.7-4.5)
[2021-08-27] MEDS ORDERED: 0.9 % Sodium Chloride 1,000 ML ONE ×4 (05:50→22:06)
[2021-08-27] MEDS: *HR* Heparin 5,000 UNIT/ML VIAL IVP PRN ×2 (07:02→23:45)
[2021-08-27 07:59] LABS: Basophils # 0.1 K/mcL (0.0-0.2); Basophils % 0.3 %; Eosinophils # 0.1 K/mcL (0.0-0.6); Eosinophils % 0.3 %; Hematocrit 23.6 % (35.3-44.9); Hemoglobin 7.6 g/dL (11.5-15.4); Immature Granulocytes % 1.1 % (0-4); Lymphocytes # 1.8 K/mcL (0.6-4.6); Lymphocytes % 8.1 %; Mean Corpuscular HGB Conc 32.2 g/dL (31.6-35.5); Mean Corpuscular Hemoglobin 27.1 pg (28.0-33.3); Mean Corpuscular Volume 84.3 fL (83.0-100.0); Mean Platelet Volume 12.2 fL (9.4-12.4); Monocytes # 1.8 K/mcL (0.0-1.3); Monocytes % 8.1 %; Neutrophils # 18.2 K/mcL (1.6-8.9); Nucleated Red Blood Cells 1.8 /100 WBC (0); Platelet Count 206 K/mcL (140-400); Red Cell Distribution Width 14.9 % (11.5-14.5); Segmented Neutrophils % 82.1 %; White Blood Count 22.1 K/mcL (4.3-11.1)
[2021-08-27] MEDS: Docusate Oral Soln 100 MG/10 ML UDC GTUBE SCH ×2 (08:06→19:52)
[2021-08-27] MEDS: Chlorhexidine Rinse 15 ML MOUTHWASH MM SCH ×2 (08:06→19:51)
[2021-08-27] MEDS: Aspirin 325 MG TABLET PO SCH (08:06)
[2021-08-27] MEDS: Norepinephrine 4 MG/254 ML IV.SOLN IVC SCH ×3 (10:31→22:52)
[2021-08-27] MEDS: Albuterol 2.5 MG/3 ML NEBULIZER IH SCH ×4 (11:53→23:35)
[2021-08-27] MEDS ORDERED: *HR* Amiodarone 200 MG TABLET PO ONE (12:00)
[2021-08-27] MEDS: FentaNYL (PF) 1,000 MCG/100 ML IV.SOLN IVC SCH (16:05)
[2021-08-27] MEDS: Linezolid 600 MG TABLET PO SCH (19:51)
[2021-08-27] MEDS: *HR* Amiodarone 200 MG TABLET PO SCH (19:52)
[2021-08-28] MEDS: PrismaSATE BGK 4/2.5 5,000 ML CRRT SCH ×13 (00:14→23:36)
[2021-08-28] MEDS: Artificial Tears SOLN 15 ML BOTTLE BOTH EYES SCH ×6 (03:06→23:59)
[2021-08-28] MEDS: Insulin LISPRO 300 UNITS/3 ML VIAL SUBQ SCH ×6 (03:06→23:59)
[2021-08-28 03:24] LABS: VBG Ionized Calcium 1.08 mmol/L (1.15-1.35)
[2021-08-28] MEDS: Albuterol 2.5 MG/3 ML NEBULIZER IH SCH ×2 (03:49→07:29)
[2021-08-28 03:50] LABS: Basophils % 0.2 %; Eosinophils # 0.1 K/mcL (0.0-0.6); Eosinophils % 0.9 %; Hematocrit 22.6 % (35.3-44.9); Hemoglobin 7.3 g/dL (11.5-15.4); Immature Granulocytes % 0.5 % (0-4); Lymphocytes # 2.1 K/mcL (0.6-4.6); Mean Corpuscular HGB Conc 32.3 g/dL (31.6-35.5); Mean Corpuscular Hemoglobin 27.5 pg (28.0-33.3); Mean Corpuscular Volume 85.3 fL (83.0-100.0); Mean Platelet Volume 11.3 fL (9.4-12.4); Monocytes # 1.4 K/mcL (0.0-1.3); Monocytes % 8.4 %; Neutrophils # 12.6 K/mcL (1.6-8.9); Nucleated Red Blood Cells 2.1 /100 WBC (0); Platelet Count 232 K/mcL (140-400); Red Blood Count 2.65 M/mcL (3.82-4.97); White Blood Count 16.3 K/mcL (4.3-11.1)
[2021-08-28 03:55] LABS: Albumin 2.6 g/dL (3.5-5.7); Albumin/Globulin Ratio 1.1 (1.1-2.2); Bilirubin,Total 1.6 mg/dL (0.3-1.0); Calcium 7.5 mg/dL (8.6-10.3); Globulin 2.4 g/dL (2.4-3.5); Magnesium 2.5 mg/dL (1.6-2.6); Phosphorous 2.5 mg/dL (2.7-4.5); Potassium 4.1 mEq/L (3.5-5.1)
[2021-08-28 03:58] LABS: INR 1.4; Prothrombin Time 15.8 Seconds (9.4-12.1)
[2021-08-28 04:02] LABS: ABG Base Excess 0 mEq/L (-2 to 3); ABG HCO3 24 mEq/L (21-27); ABG Oxygen Saturation 92 % (95-98); ABG PCO2 32 mmHg (35-45); ABG PH 7.48 pH Units (7.32-7.45); ABG PO2 58 mmHg (85-104); ABG TCO2 25 mEq/L (20-26); Blood Gas Modality ASSIST CONTROL; Blood Gas VT 450 cc
[2021-08-28] MEDS: Calcium Gluconate 1gm/50mL 1 GM/50 ML BAG IVPB PRN (04:12)
[2021-08-28] MEDS: Pantoprazole 40 MG VIAL IVP SCH ×2 (06:09→16:57)
[2021-08-28] MEDS: *HR* Heparin 5,000 UNIT/ML VIAL SQ SCH ×2 (06:09→16:57)
[2021-08-28] MEDS: Cefepime HCl 2,000 MG in Water for inj. (sterile) 20 ML IVP SCH (06:09)
[2021-08-28] MEDS: Aspirin 325 MG TABLET PO SCH (07:41)
[2021-08-28] MEDS: *HR* Amiodarone 200 MG TABLET PO SCH ×2 (07:41→19:40)
[2021-08-28] MEDS: Linezolid 600 MG TABLET PO SCH (07:41)
[2021-08-28] MEDS: Chlorhexidine Rinse 15 ML MOUTHWASH MM SCH ×2 (07:41→19:40)
[2021-08-28] MEDS: Docusate Oral Soln 100 MG/10 ML UDC GTUBE SCH ×2 (07:41→19:40)
[2021-08-28] MEDS: Ipratropium/Albuterol Neb 3 ML IH SCH ×4 (11:11→23:39)
[2021-08-28] MEDS ORDERED: 0.9 % Sodium Chloride 2,000 ML ONE (11:23)
[2021-08-28] MEDS ORDERED: *HR* Heparin 5,000 UNIT/ML VIAL ONE (11:26)
[2021-08-28] MEDS: niCARdipine 20 MG/200 ML MLS IVC SCH ×3 (19:37→19:39)
[2021-08-28] MEDS: Norepinephrine 4 MG/254 ML IV.SOLN IVC SCH (19:40)
[2021-08-29] MEDS: niCARdipine 20 MG/200 ML MLS IVC SCH ×5 (00:12→16:17)
[2021-08-29] MEDS: *HR* Heparin 5,000 UNIT/ML VIAL IVP PRN (01:45)
[2021-08-29] MEDS: PrismaSATE BGK 4/2.5 5,000 ML CRRT SCH ×7 (02:30→23:30)
[2021-08-29] MEDS: Norepinephrine 4 MG/254 ML IV.SOLN IVC SCH ×3 (03:09→17:51)
[2021-08-29] MEDS: Artificial Tears SOLN 15 ML BOTTLE BOTH EYES SCH ×6 (03:54→23:52)
[2021-08-29] MEDS: Insulin LISPRO 300 UNITS/3 ML VIAL SUBQ SCH ×6 (03:58→23:52)
[2021-08-29 04:12] LABS: Basophils % 0.2 %; Eosinophils # 0.1 K/mcL (0.0-0.6); Eosinophils % 0.4 %; Hemoglobin 7.1 g/dL (11.5-15.4); Immature Granulocytes % 1.1 % (0-4); Lymphocytes # 2.8 K/mcL (0.6-4.6); Mean Corpuscular HGB Conc 32.3 g/dL (31.6-35.5); Mean Corpuscular Hemoglobin 28.1 pg (28.0-33.3); Mean Platelet Volume 11.4 fL (9.4-12.4); Monocytes # 1.8 K/mcL (0.0-1.3); Monocytes % 8.5 %; Neutrophils # 16.6 K/mcL (1.6-8.9); Nucleated Red Blood Cells 1.6 /100 WBC (0); Platelet Count 250 K/mcL (140-400); Red Blood Count 2.53 M/mcL (3.82-4.97); Red Cell Distribution Width 15.7 % (11.5-14.5); Segmented Neutrophils % 76.8 %; White Blood Count 21.6 K/mcL (4.3-11.1)
[2021-08-29] MEDS: Ipratropium/Albuterol Neb 3 ML IH SCH ×6 (04:12→23:09)
[2021-08-29 04:17] LABS: INR 1.4; Prothrombin Time 15.9 Seconds (9.4-12.1)
[2021-08-29 04:24] LABS: ABG Base Excess 1 mEq/L (-2 to 3); ABG HCO3 24 mEq/L (21-27); ABG Oxygen Saturation 93 % (95-98); ABG PCO2 31 mmHg (35-45); ABG PO2 61 mmHg (85-104); ABG TCO2 25 mEq/L (20-26); Blood Gas Modality ASSIST CONTROL; Blood Gas VT 450 cc
[2021-08-29 04:36] LABS: VBG Ionized Calcium 1.06 mmol/L (1.15-1.35)
[2021-08-29 04:58] LABS: Albumin 2.8 g/dL (3.5-5.7); Albumin/Globulin Ratio 1.1 (1.1-2.2); Bilirubin,Total 1.7 mg/dL (0.3-1.0); Calcium 7.6 mg/dL (8.6-10.3); Globulin 2.5 g/dL (2.4-3.5); Magnesium 2.7 mg/dL (1.6-2.6); Potassium 4.6 mEq/L (3.5-5.1); Total Protein 5.3 g/dL (6.4-8.9)
[2021-08-29] MEDS: *HR* Heparin 5,000 UNIT/ML VIAL SQ SCH (05:59)
[2021-08-29] MEDS: Pantoprazole 40 MG VIAL IVP SCH ×2 (06:00→18:16)
[2021-08-29] MEDS: Calcium Gluconate 1gm/50mL 1 GM/50 ML BAG IVPB PRN (06:13)
[2021-08-29] MEDS: Midazolam HCl 50 MG/100 ML IV.SOLN IVC SCH (06:15)
[2021-08-29] MEDS: Calcium Gluconate 1gm/50mL 1 GM/50 ML BAG IVPB SCH ×2 (08:20→09:50)
[2021-08-29] MEDS: Docusate Oral Soln 100 MG/10 ML UDC GTUBE SCH ×2 (08:24→19:46)
[2021-08-29] MEDS: *HR* Amiodarone 200 MG TABLET PO SCH (08:24)
[2021-08-29] MEDS: Aspirin 325 MG TABLET PO SCH (08:24)
[2021-08-29] MEDS: Chlorhexidine Rinse 15 ML MOUTHWASH MM SCH ×2 (09:51→19:46)
[2021-08-29] MEDS ORDERED: *HR* LORazepam 2 MG/ML VIAL IVP ONE (11:25)
[2021-08-29] MEDS: FentaNYL (PF) 1,000 MCG/100 ML IV.SOLN IVC SCH ×2 (11:37→15:58)
[2021-08-29] MEDS ORDERED: *HR* Heparin 5,000 UNIT/ML VIAL ONE (11:48)
[2021-08-29] MEDS ORDERED: 0.9 % Sodium Chloride 1,000 ML ONE ×2 (11:49→15:32)
[2021-08-29] MEDS: *HR* FentaNYL (PF) 100 MCG/2 ML VIAL IVP PRN (12:15)
[2021-08-29] MEDS: Dexmedetomidine HCl 400 MCG/100 ML MLS IVC SCH (14:11)
[2021-08-29] MEDS ORDERED: *HR* Heparin 5,000 UNIT/ML VIAL IVP ONE (15:17)
[2021-08-29] MEDS ORDERED: *HR* Heparin 5,000 UNIT/ML VIAL IVP PRN ×2 (15:17)
[2021-08-29 17:28] LABS: Hematocrit 21.3 % (35.3-44.9); Hemoglobin 6.7 g/dL (11.5-15.4); Mean Corpuscular HGB Conc 31.5 g/dL (31.6-35.5); Mean Corpuscular Hemoglobin 28.2 pg (28.0-33.3); Mean Corpuscular Volume 89.5 fL (83.0-100.0); Mean Platelet Volume 11.4 fL (9.4-12.4); Platelet Count 242 K/mcL (140-400); Red Blood Count 2.38 M/mcL (3.82-4.97); Red Cell Distribution Width 15.6 % (11.5-14.5); White Blood Count 20.3 K/mcL (4.3-11.1)
[2021-08-29 17:29] LABS: Heparin anti-factor XA UFH 0.26 IU/mL (0.30-0.70)
[2021-08-29 17:32] LABS: Activated Partial Thrombo Time 50.9 Seconds (26.0-36.0)
[2021-08-29] MEDS: Heparin 25,000UNIT/250ML 1/2NS 25,000 UNIT/250 ML IV.SOLN IVC SCH (17:41)
[2021-08-29] MEDS: *HR* OxyCODONE/APAP 5/325 TABLET PO PRN (21:32)
[2021-08-30] MEDS: PrismaSATE BGK 4/2.5 5,000 ML CRRT SCH ×11 (00:40→23:00)
[2021-08-30] MEDS: Dexmedetomidine HCl 400 MCG/100 ML MLS IVC SCH ×2 (01:52→14:56)
[2021-08-30 03:46] LABS: Basophils # 0.1 K/mcL (0.0-0.2); Basophils % 0.3 %; Eosinophils # 0.4 K/mcL (0.0-0.6); Eosinophils % 1.7 %; Hematocrit 20.4 % (35.3-44.9); Hemoglobin 6.6 g/dL (11.5-15.4); Immature Granulocytes % 0.9 % (0-4); Lymphocytes # 5.1 K/mcL (0.6-4.6); Mean Corpuscular HGB Conc 32.4 g/dL (31.6-35.5); Mean Corpuscular Hemoglobin 28.8 pg (28.0-33.3); Mean Corpuscular Volume 89.1 fL (83.0-100.0); Mean Platelet Volume 11.2 fL (9.4-12.4); Monocytes # 2.5 K/mcL (0.0-1.3); Neutrophils # 14.7 K/mcL (1.6-8.9); Nucleated Red Blood Cells 3.6 /100 WBC (0); Platelet Count 253 K/mcL (140-400); Red Blood Count 2.29 M/mcL (3.82-4.97); Red Cell Distribution Width 15.8 % (11.5-14.5); Segmented Neutrophils % 64.1 %; White Blood Count 22.9 K/mcL (4.3-11.1)
[2021-08-30] MEDS: Artificial Tears SOLN 15 ML BOTTLE BOTH EYES SCH ×5 (03:54→19:52)
[2021-08-30] MEDS: Insulin LISPRO 300 UNITS/3 ML VIAL SUBQ SCH ×5 (03:57→19:53)
[2021-08-30] MEDS: Ipratropium/Albuterol Neb 3 ML IH SCH ×5 (03:57→20:03)
[2021-08-30 04:01] LABS: INR 1.4; Prothrombin Time 15.3 Seconds (9.4-12.1)
[2021-08-30 04:04] LABS: VBG Ionized Calcium 1.06 mmol/L (1.15-1.35)
[2021-08-30] MEDS: Norepinephrine 4 MG/254 ML IV.SOLN IVC SCH ×2 (04:10→14:57)
[2021-08-30 04:16] LABS: ABG Base Excess 2 mEq/L (-2 to 3); ABG HCO3 24 mEq/L (21-27); ABG Oxygen Saturation 93 % (95-98); ABG PCO2 28 mmHg (35-45); ABG PH 7.55 pH Units (7.32-7.45); ABG PO2 57 mmHg (85-104); ABG TCO2 25 mEq/L (20-26); Blood Gas Modality ASSIST CONTROL; Blood Gas VT 450 cc
[2021-08-30 04:21] LABS: Albumin 2.8 g/dL (3.5-5.7); Bilirubin,Total 1.3 mg/dL (0.3-1.0); Calcium 7.5 mg/dL (8.6-10.3); Globulin 2.8 g/dL (2.4-3.5); Magnesium 2.6 mg/dL (1.6-2.6); Phosphorous 2.4 mg/dL (2.7-4.5); Potassium 4.4 mEq/L (3.5-5.1); Total Protein 5.6 g/dL (6.4-8.9)
[2021-08-30] MEDS: Calcium Gluconate 1gm/50mL 1 GM/50 ML BAG IVPB SCH ×2 (05:08→06:10)
[2021-08-30] MEDS: Pantoprazole 40 MG VIAL IVP SCH ×2 (05:56→17:22)
[2021-08-30] MEDS: *HR* OxyCODONE/APAP 5/325 TABLET PO PRN ×4 (06:58→18:47)
[2021-08-30] MEDS: Aspirin 325 MG TABLET PO SCH (08:21)
[2021-08-30] MEDS: Chlorhexidine Rinse 15 ML MOUTHWASH MM SCH ×2 (08:21→19:51)
[2021-08-30] MEDS: Docusate Oral Soln 100 MG/10 ML UDC GTUBE SCH ×2 (08:21→19:51)
[2021-08-30] MEDS: *HR* Amiodarone 200 MG TABLET PO SCH (08:22)
[2021-08-30] MEDS ORDERED: 0.9 % Sodium Chloride 250 ML ONE (08:26)
[2021-08-30] MEDS: Heparin 25,000UNIT/250ML 1/2NS 25,000 UNIT/250 ML IV.SOLN IVC SCH (12:17)
[2021-08-30 12:31] LABS: Hematocrit 25.2 % (35.3-44.9)
[2021-08-30 14:55] LABS: Bilirubin,Urine Small (Negative); Blood,Urine Large (Negative); Budding Yeast,Urine Many per hpf (None Seen); Clarity,Urine Ex.Turbid (Clear); Color,Urine Dark-Yellow (Yellow); Glucose,Urine (UA) Normal (Normal); Ketones,Urine Trace mg/dL (Negative); Leukocyte Esterase,Urine Large (Negative); Mucus,Urine Few per lpf (None-Few); Nitrite,Urine Negative (Negative); Protein,Urine 200 mg/dL (Neg-Trace); RBC,Urine TNTC per hpf (0-3); Renal Epithelial Cells,Urine Few per hpf (None-Few); Specific Gravity,Urine 1.024 (1.010-1.025); Transitional Epi Cells,Urine Few per hpf (None-Few); Urobilinogen,Urine Normal (Normal); WBC,Urine TNTC per hpf (0-3)
[2021-08-30] MEDS: Cefepime HCl 1,000 MG in Water for inj. (sterile) 10 ML IVP SCH (17:22)
[2021-08-30] MEDS ORDERED: Vancomycin 1,500 MG/265 ML IV.SOLN IVPB ONE (17:58)
[2021-08-30 18:32] LABS: Hematocrit 26.1 % (35.3-44.9); Hemoglobin 8.4 g/dL (11.5-15.4)
[2021-08-30] MEDS: Insulin DETEMIR 100 UNIT/ML X5UNITS SUBQ SCH (19:52)
[2021-08-30] MEDS: *HR* FentaNYL (PF) 100 MCG/2 ML VIAL IVP PRN (21:20)
[2021-08-31] MEDS: Ipratropium/Albuterol Neb 3 ML IH SCH ×7 (00:10→23:27)
[2021-08-31] MEDS: *HR* OxyCODONE/APAP 5/325 TABLET PO PRN (00:55)
[2021-08-31] MEDS: Insulin LISPRO 300 UNITS/3 ML VIAL SUBQ SCH ×6 (01:12→19:49)
[2021-08-31] MEDS: Artificial Tears SOLN 15 ML BOTTLE BOTH EYES SCH ×6 (01:12→19:32)
[2021-08-31] MEDS: Dexmedetomidine HCl 400 MCG/100 ML MLS IVC SCH ×2 (02:02→22:00)
[2021-08-31] MEDS: *HR* FentaNYL (PF) 100 MCG/2 ML VIAL IVP PRN ×4 (02:54→22:50)
[2021-08-31] MEDS: PrismaSATE BGK 4/2.5 5,000 ML CRRT SCH ×8 (04:00→21:46)
[2021-08-31 04:32] LABS: VBG Ionized Calcium 1.07 mmol/L (1.15-1.35)
[2021-08-31 04:35] LABS: ABG Base Excess 0 mEq/L (-2 to 3); ABG HCO3 25 mEq/L (21-27); ABG Oxygen Saturation 93 % (95-98); ABG PCO2 38 mmHg (35-45); ABG PH 7.43 pH Units (7.32-7.45); ABG PO2 66 mmHg (85-104); ABG TCO2 26 mEq/L (20-26); Blood Gas Modality ASSIST CONTROL; Blood Gas VT 400 cc
[2021-08-31 04:50] LABS: INR 1.2; Prothrombin Time 13.5 Seconds (9.4-12.1)
[2021-08-31 05:04] LABS: Albumin 2.9 g/dL (3.5-5.7); Bilirubin,Total 1.1 mg/dL (0.3-1.0); Calcium 7.7 mg/dL (8.6-10.3); Globulin 2.9 g/dL (2.4-3.5); Magnesium 2.4 mg/dL (1.6-2.6); Phosphorous 2.6 mg/dL (2.7-4.5); Potassium 4.5 mEq/L (3.5-5.1); Total Protein 5.8 g/dL (6.4-8.9)
[2021-08-31] MEDS: Calcium Gluconate 1gm/50mL 1 GM/50 ML BAG IVPB SCH ×2 (05:41→06:46)
[2021-08-31] MEDS: Cefepime HCl 1,000 MG in Water for inj. (sterile) 10 ML IVP SCH ×2 (05:42→17:47)
[2021-08-31] MEDS: Pantoprazole 40 MG VIAL IVP SCH ×2 (05:42→17:47)
[2021-08-31] MEDS: Heparin 25,000UNIT/250ML 1/2NS 25,000 UNIT/250 ML IV.SOLN IVC SCH (07:41)
[2021-08-31] MEDS: Docusate Oral Soln 100 MG/10 ML UDC GTUBE SCH ×2 (08:08→19:32)
[2021-08-31] MEDS: Chlorhexidine Rinse 15 ML MOUTHWASH MM SCH ×2 (08:08→19:32)
[2021-08-31] MEDS: Aspirin 325 MG TABLET PO SCH (08:08)
[2021-08-31] MEDS: *HR* Amiodarone 200 MG TABLET PO SCH (08:08)
[2021-08-31] MEDS: Norepinephrine 4 MG/254 ML IV.SOLN IVC SCH ×2 (08:09→14:17)
[2021-08-31 08:50] LABS: Nucleated Red Blood Cells 2.2 /100 WBC (0)
[2021-08-31 08:51] LABS: Hematocrit 25.8 % (35.3-44.9); Hemoglobin 8.2 g/dL (11.5-15.4); Mean Corpuscular HGB Conc 31.8 g/dL (31.6-35.5); Mean Corpuscular Hemoglobin 28.2 pg (28.0-33.3); Mean Corpuscular Volume 88.7 fL (83.0-100.0); Mean Platelet Volume 11.2 fL (9.4-12.4); Platelet Count 209 K/mcL (140-400); Red Blood Count 2.91 M/mcL (3.82-4.97); Red Cell Distribution Width 16.8 % (11.5-14.5); White Blood Count 28.5 K/mcL (4.3-11.1)
[2021-08-31 09:26] LABS: Anisocytosis 1+ (Not Present); Eosinophils # 1.7 K/mcL (0.0-0.6); Lymphocytes # 5.1 K/mcL (0.6-4.6); Monocytes # 0.6 K/mcL (0.0-1.3); Neutrophils # 20.5 K/mcL (1.6-8.9); Platelet Estimate Normal (Normal)
[2021-08-31] MEDS ORDERED: 0.9 % Sodium Chloride 1,000 ML ONE ×2 (10:10→11:21)
[2021-08-31] MEDS ORDERED: Perflutren Lipid Microsphere 1.3 ML in 0.9 % Sodium Chloride 8.7 ML IVP PRN (10:16)
[2021-08-31] MEDS: Insulin DETEMIR 100 UNIT/ML X5UNITS SUBQ SCH (22:06)
[2021-09-01] MEDS: Artificial Tears SOLN 15 ML BOTTLE BOTH EYES SCH ×7 (00:38→23:22)
[2021-09-01] MEDS: Insulin LISPRO 300 UNITS/3 ML VIAL SUBQ SCH ×6 (00:38→20:04)
[2021-09-01] MEDS: PrismaSATE BGK 4/2.5 5,000 ML CRRT SCH ×4 (02:45→07:56)
[2021-09-01] MEDS: Ipratropium/Albuterol Neb 3 ML IH SCH ×6 (03:48→23:39)
[2021-09-01 04:17] LABS: VBG Ionized Calcium 1.07 mmol/L (1.15-1.35)
[2021-09-01 04:32] LABS: Basophils % 0.3 %; Hematocrit 26.8 % (35.3-44.9)
[2021-09-01 04:34] LABS: Basophils # 0.1 K/mcL (0.0-0.2); Eosinophils % 1.9 %; Hemoglobin 8.5 g/dL (11.5-15.4); Immature Granulocytes % 2.7 % (0-4); Lymphocytes # 4.8 K/mcL (0.6-4.6); Lymphocytes % 12.2 %; Mean Corpuscular HGB Conc 31.7 g/dL (31.6-35.5); Mean Corpuscular Hemoglobin 28.1 pg (28.0-33.3); Mean Corpuscular Volume 88.7 fL (83.0-100.0); Mean Platelet Volume 11.9 fL (9.4-12.4); Monocytes # 3.8 K/mcL (0.0-1.3); Monocytes % 9.7 %; Nucleated Red Blood Cells 1.7 /100 WBC (0); Platelet Count 259 K/mcL (140-400); Red Blood Count 3.02 M/mcL (3.82-4.97); Red Cell Distribution Width 17.1 % (11.5-14.5); Segmented Neutrophils % 73.2 %
[2021-09-01] MEDS: *HR* FentaNYL (PF) 100 MCG/2 ML VIAL IVP PRN (04:35)
[2021-09-01 04:40] LABS: Heparin anti-factor XA UFH 0.32 IU/mL (0.30-0.70); INR 1.2; Prothrombin Time 13.8 Seconds (9.4-12.1)
[2021-09-01] MEDS: Heparin 25,000UNIT/250ML 1/2NS 25,000 UNIT/250 ML IV.SOLN IVC SCH (04:42)
[2021-09-01 04:43] LABS: Eosinophils # 0.8 K/mcL (0.0-0.6)
[2021-09-01 04:45] LABS: White Blood Count 39.6 K/mcL (4.3-11.1)
[2021-09-01] MEDS: Pantoprazole 40 MG VIAL IVP SCH ×2 (05:40→17:10)
[2021-09-01] MEDS: Cefepime HCl 1,000 MG in Water for inj. (sterile) 10 ML IVP SCH (05:40)
[2021-09-01] MEDS: Calcium Gluconate 1gm/50mL 1 GM/50 ML BAG IVPB SCH ×2 (05:41→06:45)
[2021-09-01 07:09] LABS: Albumin 3.1 g/dL (3.5-5.7); Bilirubin,Total 1.2 mg/dL (0.3-1.0); Calcium 8.4 mg/dL (8.6-10.3); Magnesium 2.4 mg/dL (1.6-2.6); Phosphorous 2.2 mg/dL (2.7-4.5); Potassium 4.9 mEq/L (3.5-5.1); Total Protein 6.1 g/dL (6.4-8.9)
[2021-09-01 07:55] LABS: ABG Base Excess 1 mEq/L (-2 to 3); ABG HCO3 23 mEq/L (21-27); ABG Oxygen Saturation 92 % (95-98); ABG PCO2 28 mmHg (35-45); ABG PH 7.52 pH Units (7.32-7.45); ABG PO2 57 mmHg (85-104); ABG TCO2 24 mEq/L (20-26); Blood Gas Pressure Support 12 cm H2O
[2021-09-01] MEDS: Norepinephrine 4 MG/254 ML IV.SOLN IVC SCH ×4 (07:56→23:22)
[2021-09-01] MEDS: Chlorhexidine Rinse 15 ML MOUTHWASH MM SCH ×2 (08:39→20:04)
[2021-09-01] MEDS: Aspirin 325 MG TABLET PO SCH (08:39)
[2021-09-01] MEDS: Docusate Oral Soln 100 MG/10 ML UDC GTUBE SCH ×2 (08:39→20:04)
[2021-09-01] MEDS: *HR* Amiodarone 200 MG TABLET PO SCH (09:38)
[2021-09-01] MEDS ORDERED: 0.9 % Sodium Chloride 1,000 ML ONE (12:02)
[2021-09-01] MEDS ORDERED: *HR* Heparin 5,000 UNIT/ML VIAL ONE (12:17)
[2021-09-01] MEDS: *HR* Metoprolol 5 MG/5 ML VIAL IVP SCH ×3 (13:00→23:21)
[2021-09-01 15:54] LABS: Adenovirus Not Detected (Not Detect); Bordetella Pertussis Not Detected (Not Detect); Chlamydophila pneumoniae Not Detected (Not Detect); Coronavirus 229E Not Detected (Not Detect); Coronavirus HKU1 Not Detected (Not Detect); Coronavirus NL63 Not Detected (Not Detect); Coronavirus OC43 Not Detected (Not Detect); Human Metapneumovirus Not Detected (Not Detect); Human Rhinovirus/Enterovirus Not Detected (Not Detect); Influenza A Subtype 2009 H1 Not Detected (Not Detect); Influenza B Not Detected (Not Detect); Mycoplasma pneumoniae Not Detected (Not Detect); Parainfluenza Virus 1 Not Detected (Not Detect); Parainfluenza Virus 2 Not Detected (Not Detect); Parainfluenza Virus 3 Not Detected (Not Detect); Parainfluenza Virus 4 Not Detected (Not Detect); Respiratory Syncytial Virus Not Detected (Not Detect); SARS-CoV-2 Not Detected (Not Detect)
[2021-09-01] MEDS: Meropenem 500 MG in 0.9 % Sodium Chloride Mini Bag 100 ML IVPB SCH ×2 (17:03→23:21)
[2021-09-01] MEDS: Dexmedetomidine HCl 400 MCG/100 ML MLS IVC SCH (18:22)
[2021-09-01] MEDS ORDERED: Vancomycin 1,250 MG/262.5 ML IV.SOLN IVPB ONE (19:00)
[2021-09-01] MEDS: Insulin DETEMIR 100 UNIT/ML X5UNITS SUBQ SCH (20:04)
[2021-09-02] MEDS: Insulin LISPRO 300 UNITS/3 ML VIAL SUBQ SCH ×7 (00:09→23:33)
[2021-09-02] MEDS: Heparin 25,000UNIT/250ML 1/2NS 25,000 UNIT/250 ML IV.SOLN IVC SCH (01:15)
[2021-09-02 03:13] LABS: Basophils # 0.1 K/mcL (0.0-0.2); Basophils % 0.2 %; Eosinophils # 0.2 K/mcL (0.0-0.6); Eosinophils % 0.5 %; Hematocrit 22.7 % (35.3-44.9); Hemoglobin 7.2 g/dL (11.5-15.4); Immature Granulocytes % 2.8 % (0-4); Lymphocytes # 3.9 K/mcL (0.6-4.6); Lymphocytes % 11.7 %; Mean Corpuscular HGB Conc 31.7 g/dL (31.6-35.5); Mean Corpuscular Hemoglobin 28.7 pg (28.0-33.3); Mean Corpuscular Volume 90.4 fL (83.0-100.0); Mean Platelet Volume 12.1 fL (9.4-12.4); Monocytes # 2.8 K/mcL (0.0-1.3); Monocytes % 8.3 %; Neutrophils # 25.5 K/mcL (1.6-8.9); Nucleated Red Blood Cells 1.7 /100 WBC (0); Platelet Count 333 K/mcL (140-400); Red Blood Count 2.51 M/mcL (3.82-4.97); Red Cell Distribution Width 17.4 % (11.5-14.5); Segmented Neutrophils % 76.5 %
[2021-09-02 03:15] LABS: White Blood Count 33.3 K/mcL (4.3-11.1)
[2021-09-02 03:20] LABS: INR 1.3; Prothrombin Time 14.5 Seconds (9.4-12.1)
[2021-09-02] MEDS: Artificial Tears SOLN 15 ML BOTTLE BOTH EYES SCH ×6 (03:20→23:33)
[2021-09-02 03:30] LABS: Albumin 2.8 g/dL (3.5-5.7); Bilirubin,Total 0.9 mg/dL (0.3-1.0); Calcium 8.1 mg/dL (8.6-10.3); Globulin 2.8 g/dL (2.4-3.5); Magnesium 2.6 mg/dL (1.6-2.6); Phosphorous 4.6 mg/dL (2.7-4.5); Potassium 6.3 mEq/L (3.5-5.1); Total Protein 5.6 g/dL (6.4-8.9)
[2021-09-02 03:57] LABS: Anisocytosis 2+ (Not Present); Macrocytosis Present (Not Present); Platelet Estimate Normal (Normal); Polychromasia 1+ (Not Present)
[2021-09-02] MEDS: Ipratropium/Albuterol Neb 3 ML IH SCH ×6 (03:59→23:25)
[2021-09-02] MEDS ORDERED: Isovue-370 500 ML BOTTLE IVP ONE (04:56)
[2021-09-02] MEDS: Pantoprazole 40 MG VIAL IVP SCH ×2 (05:09→17:53)
[2021-09-02] MEDS: *HR* Metoprolol 5 MG/5 ML VIAL IVP SCH ×4 (05:10→23:33)
[2021-09-02] MEDS ORDERED: Calcium Gluconate 1gm/50mL 1 GM/50 ML BAG IVPB ONE (06:57)
[2021-09-02] MEDS ORDERED: Albumin 25% 25gram/100mL 25 GM/100 ML IV.SOLN IVPB PRN (07:33)
[2021-09-02] MEDS ORDERED: 0.9 % Sodium Chloride 250 ML IVC PRN (07:33)
[2021-09-02] MEDS ORDERED: 0.9 % Sodium Chloride 1,000 ML PRIME SCH (07:45)
[2021-09-02] MEDS: Norepinephrine 4 MG/254 ML IV.SOLN IVC SCH ×3 (08:13→23:05)
[2021-09-02] MEDS: Meropenem 500 MG in 0.9 % Sodium Chloride Mini Bag 100 ML IVPB SCH (09:30)
[2021-09-02] MEDS: Chlorhexidine Rinse 15 ML MOUTHWASH MM SCH ×2 (09:30→19:41)
[2021-09-02] MEDS ORDERED: *HR* Heparin 10,000 UNIT/10 ML VIAL IV PRN (09:51)
[2021-09-02] MEDS: *HR* Amiodarone 200 MG TABLET PO SCH (13:35)
[2021-09-02] MEDS: Docusate Oral Soln 100 MG/10 ML UDC GTUBE SCH ×2 (13:35→19:41)
[2021-09-02] MEDS: Aspirin 325 MG TABLET PO SCH (13:35)
[2021-09-02 17:09] LABS: Hepatitis B Surface Antigen Nonreactive (Nonreactive)
[2021-09-02] MEDS: Meropenem 1,000 MG in Water for inj. (sterile) 20 ML IVP SCH (17:52)
[2021-09-02] MEDS ORDERED: Ipratropium/Albuterol Neb 3 ML IH ONE (18:33)
[2021-09-02] MEDS ORDERED: *HR* LORazepam 2 MG/ML VIAL IVP ONE (18:34)
[2021-09-02] MEDS: Dexmedetomidine HCl 400 MCG/100 ML MLS IVC SCH (19:35)
[2021-09-02] MEDS: Insulin DETEMIR 100 UNIT/ML X5UNITS SUBQ SCH (20:00)
[2021-09-02] MEDS: *HR* Heparin 5,000 UNIT/ML VIAL SQ SCH (21:40)
[2021-09-02 22:15] LABS: Bacteria,Urine Moderate per hpf (None-Few); Bilirubin,Urine Negative (Negative); Blood,Urine Large (Negative); Budding Yeast,Urine Many per hpf (None Seen); Clarity,Urine Ex.Turbid (Clear); Color,Urine Light-Orange (Yellow); Glucose,Urine (UA) Normal (Normal); Hyaline Casts,Urine Moderate per lpf (None Seen); Ketones,Urine Trace mg/dL (Negative); Leukocyte Esterase,Urine Large (Negative); Nitrite,Urine Negative (Negative); Protein,Urine 100 mg/dL (Neg-Trace); RBC,Urine 30-50 per hpf (0-3); Specific Gravity,Urine 1.013 (1.010-1.025); Squamous Epithelial Cell,Urine Moderate per hpf (None-Few); Transitional Epi Cells,Urine Few per hpf (None-Few); Urobilinogen,Urine Normal (Normal); WBC,Urine 30-50 per hpf (0-3)
[2021-09-03 01:26] LABS: ABG Base Excess 0 mEq/L (-2 to 3); ABG HCO3 28 mEq/L (21-27); ABG Oxygen Saturation 95 % (95-98); ABG PCO2 67 mmHg (35-45); ABG PH 7.24 pH Units (7.32-7.45); ABG PO2 91 mmHg (85-104); ABG TCO2 30 mEq/L (20-26); Blood Gas Modality avaps; Blood Gas VT 500 cc
[2021-09-03] MEDS: Ipratropium/Albuterol Neb 3 ML IH SCH ×6 (03:35→23:39)
[2021-09-03] MEDS: Artificial Tears SOLN 15 ML BOTTLE BOTH EYES SCH ×6 (03:43→23:08)
[2021-09-03] MEDS: Insulin LISPRO 300 UNITS/3 ML VIAL SUBQ SCH ×6 (03:44→23:27)
[2021-09-03 04:23] LABS: ABG Base Excess 0 mEq/L (-2 to 3); ABG HCO3 28 mEq/L (21-27); ABG Oxygen Saturation 93 % (95-98); ABG PCO2 59 mmHg (35-45); ABG PH 7.28 pH Units (7.32-7.45); ABG PO2 78 mmHg (85-104); ABG TCO2 30 mEq/L (20-26); Blood Gas Modality BiLevel; Blood Gas VT 500 cc
[2021-09-03] MEDS: *HR* Heparin 5,000 UNIT/ML VIAL SQ SCH ×3 (05:12→21:31)
[2021-09-03] MEDS: *HR* Metoprolol 5 MG/5 ML VIAL IVP SCH ×4 (05:13→23:08)
[2021-09-03] MEDS: Pantoprazole 40 MG VIAL IVP SCH ×2 (05:13→17:21)
[2021-09-03 05:17] LABS: Calcium 8.5 mg/dL (8.6-10.3); Magnesium 2.6 mg/dL (1.6-2.6); Phosphorous 9.9 mg/dL (2.7-4.5); Potassium 6.2 mEq/L (3.5-5.1)
[2021-09-03 05:21] LABS: Basophils # 0.1 K/mcL (0.0-0.2); Basophils % 0.3 %; Hematocrit 27.4 % (35.3-44.9); Hemoglobin 8.2 g/dL (11.5-15.4); Immature Granulocytes % 2.8 % (0-4); Lymphocytes % 4.8 %; Mean Corpuscular HGB Conc 29.9 g/dL (31.6-35.5); Mean Corpuscular Hemoglobin 27.5 pg (28.0-33.3); Mean Corpuscular Volume 91.9 fL (83.0-100.0); Monocytes # 1.6 K/mcL (0.0-1.3); Monocytes % 3.9 %; Nucleated Red Blood Cells 0.8 /100 WBC (0); Platelet Count 511 K/mcL (140-400); Red Blood Count 2.98 M/mcL (3.82-4.97); Red Cell Distribution Width 18.6 % (11.5-14.5); Segmented Neutrophils % 88.2 %
[2021-09-03] MEDS ORDERED: Insulin Human Regular 10 UNIT in 0.9 % Sodium Chloride 10 ML IV ONE (06:07)
[2021-09-03] MEDS ORDERED: *HR* Dextrose 50 % in Water (Syg) 50 ML SYRINGE IVP ONE (06:07)
[2021-09-03] MEDS ORDERED: Albuterol Neb 7.5 MG, Sodium Chloride for inhalation 12 ML IH ONE (06:08)
[2021-09-03] MEDS ORDERED: Albuterol 2.5 MG/3 ML NEBULIZER IH ONE (06:30)
[2021-09-03] MEDS: Calcium Gluconate 1gm/50mL 1 GM/50 ML BAG IVPB PRN (06:47)
[2021-09-03] MEDS ORDERED: 0.9 % Sodium Chloride 250 ML IVC PRN (07:02)
[2021-09-03] MEDS: Aspirin 325 MG TABLET PO SCH (07:40)
[2021-09-03] MEDS ORDERED: *HR* Heparin 10,000 UNIT/10 ML VIAL IV PRN (07:40)
[2021-09-03] MEDS: Docusate Oral Soln 100 MG/10 ML UDC GTUBE SCH ×2 (07:41→19:50)
[2021-09-03] MEDS: *HR* Amiodarone 200 MG TABLET PO SCH (07:41)
[2021-09-03] MEDS: Chlorhexidine Rinse 15 ML MOUTHWASH MM SCH ×2 (09:11→19:49)
[2021-09-03 09:31] LABS: Basophils % 0.2 %; Hematocrit 26.4 % (35.3-44.9); Mean Corpuscular HGB Conc 30.3 g/dL (31.6-35.5); Mean Platelet Volume 11.8 fL (9.4-12.4)
[2021-09-03 09:33] LABS: Basophils # 0.1 K/mcL (0.0-0.2); Immature Granulocytes % 2.5 % (0-4); Lymphocytes # 2.4 K/mcL (0.6-4.6); Lymphocytes % 8.5 %; Mean Corpuscular Hemoglobin 28.2 pg (28.0-33.3); Monocytes # 1.7 K/mcL (0.0-1.3); Monocytes % 5.9 %; Neutrophils # 23.5 K/mcL (1.6-8.9); Nucleated Red Blood Cells 1.4 /100 WBC (0); Platelet Count 503 K/mcL (140-400); Red Blood Count 2.84 M/mcL (3.82-4.97); Red Cell Distribution Width 18.3 % (11.5-14.5); Segmented Neutrophils % 82.9 %; White Blood Count 28.3 K/mcL (4.3-11.1)
[2021-09-03 09:52] LABS: Calcium 8.6 mg/dL (8.6-10.3); Potassium 5.2 mEq/L (3.5-5.1)
[2021-09-03 10:47] LABS: Anisocytosis 2+ (Not Present)
[2021-09-03 10:48] LABS: Basophilic Stippling 1+ (Not Present); Hypochromasia Present (Not Present); Macrocytosis Present (Not Present)
[2021-09-03 10:49] LABS: Poikilocytosis 1+ (Not Present); Polychromasia 1+ (Not Present)
[2021-09-03] MEDS: Meropenem 1,000 MG in Water for inj. (sterile) 20 ML IVP SCH (17:21)
[2021-09-03] MEDS: Insulin DETEMIR 100 UNIT/ML X5UNITS SUBQ SCH (20:18)
[2021-09-04 03:48] LABS: VBG Ionized Calcium 1.01 mmol/L (1.15-1.35)
[2021-09-04] MEDS: Ipratropium/Albuterol Neb 3 ML IH SCH ×4 (03:58→15:37)
[2021-09-04 04:01] LABS: Basophils # 0.1 K/mcL (0.0-0.2); Basophils % 0.2 %; Hematocrit 26.3 % (35.3-44.9); Hemoglobin 7.9 g/dL (11.5-15.4); Immature Granulocytes % 2.3 % (0-4); Lymphocytes # 2.2 K/mcL (0.6-4.6); Lymphocytes % 6.1 %; Mean Corpuscular Hemoglobin 28.2 pg (28.0-33.3); Mean Corpuscular Volume 93.9 fL (83.0-100.0); Mean Platelet Volume 11.7 fL (9.4-12.4); Monocytes % 8.9 %; Neutrophils # 30.1 K/mcL (1.6-8.9); Nucleated Red Blood Cells 2.6 /100 WBC (0); Platelet Count 627 K/mcL (140-400); Segmented Neutrophils % 82.5 %
[2021-09-04 04:09] LABS: Monocytes # 3.3 K/mcL (0.0-1.3); White Blood Count 36.5 K/mcL (4.3-11.1)
[2021-09-04 04:10] LABS: Calcium 8.3 mg/dL (8.6-10.3); Magnesium 2.4 mg/dL (1.6-2.6); Phosphorous 9.8 mg/dL (2.7-4.5); Potassium 5.7 mEq/L (3.5-5.1)
[2021-09-04] MEDS: Artificial Tears SOLN 15 ML BOTTLE BOTH EYES SCH ×2 (04:14→08:41)
[2021-09-04] MEDS: Insulin LISPRO 300 UNITS/3 ML VIAL SUBQ SCH ×3 (04:14→12:33)
[2021-09-04] MEDS: Norepinephrine 4 MG/254 ML IV.SOLN IVC SCH ×3 (04:15→10:50)
[2021-09-04 04:36] LABS: ABG Base Excess 0 mEq/L (-2 to 3); ABG HCO3 28 mEq/L (21-27); ABG Oxygen Saturation 94 % (95-98); ABG PCO2 64 mmHg (35-45); ABG PH 7.25 pH Units (7.32-7.45); ABG PO2 84 mmHg (85-104); ABG TCO2 30 mEq/L (20-26); Blood Gas VT 500 cc
[2021-09-04] MEDS: Pantoprazole 40 MG VIAL IVP SCH (05:31)
[2021-09-04] MEDS: *HR* Heparin 5,000 UNIT/ML VIAL SQ SCH ×2 (05:31→13:14)
[2021-09-04] MEDS: *HR* Metoprolol 5 MG/5 ML VIAL IVP SCH ×2 (05:32→12:33)
[2021-09-04] MEDS: Calcium Gluconate 1gm/50mL 1 GM/50 ML BAG IVPB PRN (06:12)
[2021-09-04] MEDS ORDERED: 0.9 % Sodium Chloride 250 ML IVC PRN (07:20)
[2021-09-04] MEDS ORDERED: Norepinephrine 4 MG/254 ML IV.SOLN IVC SCH (07:45)
[2021-09-04 08:15] LABS: ABG Base Excess -3 mEq/L (-2 to 3); ABG HCO3 25 mEq/L (21-27); ABG Oxygen Saturation 66 % (95-98); ABG PCO2 57 mmHg (35-45); ABG PH 7.25 pH Units (7.32-7.45); ABG PO2 41 mmHg (85-104); ABG TCO2 27 mEq/L (20-26); Blood Gas Modality ASSIST CONTROL; Blood Gas Pressure Support 5 cm H2O; Blood Gas VT 400 cc
[2021-09-04] MEDS ORDERED: Phenylephrine 50 MG in 0.9 % Sodium Chloride 250 ML IVC SCH (08:15)
[2021-09-04] MEDS ORDERED: 0.9 % Sodium Chloride 1,000 ML ONE (08:19)
[2021-09-04] MEDS ORDERED: Vasopressin 40 UNIT in D5% in Water 100 ML IVC SCH (08:30)
[2021-09-04] MEDS: Docusate Oral Soln 100 MG/10 ML UDC GTUBE SCH (08:43)
[2021-09-04] MEDS: *HR* Amiodarone 200 MG TABLET PO SCH (08:43)
[2021-09-04] MEDS: Chlorhexidine Rinse 15 ML MOUTHWASH MM SCH (08:44)
[2021-09-04] MEDS: Aspirin 325 MG TABLET PO SCH (08:44)
[2021-09-04 09:05] LABS: Hemoglobin 7.8 g/dL (11.5-15.4); Mean Platelet Volume 11.6 fL (9.4-12.4)
[2021-09-04 09:07] LABS: Hematocrit 26.5 % (35.3-44.9); Mean Corpuscular HGB Conc 29.4 g/dL (31.6-35.5); Mean Corpuscular Hemoglobin 28.3 pg (28.0-33.3); Nucleated Red Blood Cells 5.5 /100 WBC (0); Platelet Count 609 K/mcL (140-400); Red Blood Count 2.76 M/mcL (3.82-4.97); Red Cell Distribution Width 18.1 % (11.5-14.5)
[2021-09-04 09:13] LABS: White Blood Count 37.6 K/mcL (4.3-11.1)
[2021-09-04 09:21] LABS: Albumin 2.9 g/dL (3.5-5.7); Albumin/Globulin Ratio 0.9 (1.1-2.2); Bilirubin,Total 0.9 mg/dL (0.3-1.0); Calcium 7.9 mg/dL (8.6-10.3); Globulin 3.2 g/dL (2.4-3.5); Magnesium 2.7 mg/dL (1.6-2.6); Potassium 6.1 mEq/L (3.5-5.1); Total Protein 6.1 g/dL (6.4-8.9)
[2021-09-04 09:33] LABS: Anisocytosis 1+ (Not Present); Hypochromasia Present (Not Present); Large Platelets Present (Not Present); Lymphocytes # 4.5 K/mcL (0.6-4.6); Monocytes # 0.8 K/mcL (0.0-1.3); Neutrophils # 30.8 K/mcL (1.6-8.9); Poikilocytosis 1+ (Not Present); Polychromasia 1+ (Not Present)
[2021-09-04 09:34] LABS: Platelet Estimate Marked Increase (Normal)
[2021-09-04] MEDS ORDERED: Artificial Tears SOLN 15 ML BOTTLE BOTH EYES PRN (09:52)
[2021-09-04 11:34] LABS: ABG Base Excess 3 mEq/L (-2 to 3); ABG HCO3 29 mEq/L (21-27); ABG Oxygen Saturation 97 % (95-98); ABG PCO2 52 mmHg (35-45); ABG PH 7.35 pH Units (7.32-7.45); ABG PO2 93 mmHg (85-104); ABG TCO2 31 mEq/L (20-26); Blood Gas Modality ASSIST CONTROL; Blood Gas Pressure Support 8 cm H2O; Blood Gas VT 400 cc
[2021-09-04] MEDS ORDERED: Artificial Tears SOLN 15 ML BOTTLE BOTH EYES SCH (12:00)
[2021-09-04 12:23] VITALS: TEMP 100
[2021-09-04] MEDS ORDERED: Calcium Gluconate 1gm/50mL 1 GM/50 ML BAG IVPB PRN ×2 (13:28)
[2021-09-04] MEDS ORDERED: *HR* Heparin 5,000 UNIT/ML VIAL IVP PRN (13:28)
[2021-09-04] MEDS ORDERED: PrismaSATE BGK 4/2.5 5,000 ML CRRT SCH ×2 (13:30)
[2021-09-04] MEDS ORDERED: Calcium Chloride 4,000 MG in 0.9 % Sodium Chloride 1,000 ML CRRT SCH (13:30)
[2021-09-04] MEDS ORDERED: 0.9 % Sodium Chloride 1,000 ML PRIME SCH (13:30)
[2021-09-04] MEDS ORDERED: *HR* EPINEPHrine 1 MG/10 ML SYRINGE IVP ONE (14:07)
[2021-09-04] MEDS ORDERED: *HR* Magnesium Sulfate 2 GM/50 ML PIGGYBACK IVPB ONE (14:07)
[2021-09-04] MEDS ORDERED: *HR* Etomidate 40 MG/20 ML VIAL IVP ONE (14:07)
[2021-09-04] MEDS ORDERED: *HR* Amiodarone 450 MG/9 ML VIAL IVC ONE (14:07)
[2021-09-04 14:14] VITALS: BP 177/89; PULSE 103; O2SAT 100
[2021-09-04] MEDS ORDERED: Chlorhexidine Rinse 15 ML MOUTHWASH MM SCH (21:00)
== END 2021-09-04 14:08 | disposition expired | DRG 166 ==
LOC: SAMDAY 06:30 → ICNU 10:57
PROVIDERS: ADMIT Thoracic Surgery (Cardiothoracic Vascular Surgery); ATTEND Thoracic Surgery (Cardiothoracic Vascular Surgery)